=== PATIENT | female | born 1970 | race Caucasian/White ===

== ENCOUNTER 2019-11-28 16:35 | Outpatient (CLI) | payer OTHER, SELFPAY ==
--- NOTE | ~2019-11-28 | XR_ITS ---
EXAMINATION: XR knee RT min 4V EXAM DATE: 11/28/2019 17:37 INDICATION: No known recent injury provided at this time. Pain of the right knee. TECHNIQUE: Right knee lateral, frontal AP, frontal PA tunnel, sunrise projections. There is no prior study for comparison. FINDINGS: No evidence osteochondral defect or joint body in the right knee joint. There are no acut e fractures or dislocations identified. There is no subcutaneous gas. The soft tissue is unremarkab le. There are no radiopaque foreign bodies. No joint effusion. IMPRESSION: 1. Unremarkable XR knee RT min 4V exam. Reviewed, dictated and finalized at location A.
--- NOTE | ~2019-11-28 | XR_ITS ---
EXAMINATION: XR foot LT 2V EXAM DATE: 11/28/2019 17:37 INDICATION: No known recent injury provided at this time. Pain of the left foot. Pain with weightbear ing. TECHNIQUE: Frontal and lateral projections of the left foot. There is no prior study for comparison . FINDINGS: There are no bony erosions identified. No periosteal reaction or band of sclerosis to sug gest subacute stress fracture. There are no acute left foot fractures or dislocations identified. T here is no subcutaneous gas. The soft tissue is unremarkable. There are no radiopaque foreign bodi es. IMPRESSION: 1. XR foot LT 2V exam without acute osseous findings. Reviewed, dictated and finalized at location A.
--- NOTE | ~2019-11-28 | XR_ITS ---
EXAMINATION: XR hand LT 2V EXAM DATE: 11/28/2019 17:37 INDICATION: Bilateral hand pain. No known injury. Polyarthralgia. TECHNIQUE: Frontal and lateral projections of the left hand. There is no prior study for comparison . FINDINGS: There are no bony erosions identified. There are no acute left hand fractures or dislocati ons identified. There is no subcutaneous gas. The soft tissue is unremarkable. There are no radio paque foreign bodies. IMPRESSION: 1. Unremarkable left hand exam. Reviewed, dictated and finalized at location A.
--- NOTE | ~2019-11-28 | XR_ITS ---
EXAMINATION: XR sacroiliac joints min 3V EXAM DATE: 11/28/2019 17:38 INDICATION: Sacroiliac pain. TECHNIQUE: Frontal, bilateral oblique projections of the sacroiliac joints. There is no prior study for comparison. FINDINGS: There are no acute sacroiliac fractures or dislocations identified. There is no subcutaneo us gas. The soft tissue is unremarkable. There are no radiopaque foreign bodies. IMPRESSION: 1. Unremarkable sacroiliac exam. Reviewed, dictated and finalized at location A.
--- NOTE | ~2019-11-28 | XR_ITS ---
EXAMINATION: XR foot RT 2V EXAM DATE: 11/28/2019 17:37 INDICATION: Polyarthralgia. Right foot pain with weightbearing. TECHNIQUE: Frontal and lateral projections of the right foot. There is no prior study for compariso n. FINDINGS: There are no bony erosions identified. No periosteal reaction or band of sclerosis to sugg est subacute stress fracture. There are no acute right foot fractures or dislocations identified. There is no subcutaneous gas. The soft tissue is unremarkable. There are no radiopaque foreign nathanael dies. IMPRESSION: 1. XR foot RT 2V exam without acute osseous findings. Reviewed, dictated and finalized at location A.
--- NOTE | ~2019-11-28 | XR_ITS ---
EXAMINATION: XR hand RT 2V EXAM DATE: 11/28/2019 17:37 INDICATION: Bilateral hand pain. Arthralgia. TECHNIQUE: Frontal and lateral projections of the right hand. There is no prior study for compariso n. FINDINGS: There are no acute right hand fractures or dislocations identified. There is no subcutaneo us gas. The soft tissue is unremarkable. There are no radiopaque foreign bodies. There are no bon y erosions identified. IMPRESSION: 1. Unremarkable XR hand RT 2V exam. Reviewed, dictated and finalized at location A.
--- NOTE | ~2019-11-28 | XR_ITS ---
EXAMINATION: XR knee LT min 4V EXAM DATE: 11/28/2019 17:37 INDICATION: Polyarthralgia. Left pain. TECHNIQUE: Left knee lateral, frontal AP, frontal PA tunnel, sunrise projections. There is no prior study for comparison. FINDINGS: No evidence osteochondral defect or joint body in the left knee joint. There are no acute fractures or dislocations identified. There is no subcutaneous gas. No joint effusion. There are no radiopaque foreign bodies. IMPRESSION: 1. Unremarkable XR knee LT min 4V exam. Reviewed, dictated and finalized at location A.
== END 2019-11-28 16:36 | disposition home or self-care (01) ==
PROVIDERS: PCP Family Medicine; Visit Provider Physician Assistant
DX: M25.50 Pain in unspecified joint (principal)
CPT/HCPCS: 72202; 73120; 73564; 73620

== ENCOUNTER → 2019-12-05 14:37 | Outpatient (REF) | payer OTHER, SELFPAY | LOC: ANHLAB 14:37 | PROVIDERS: PCP Family Medicine; Visit Provider Nurse Practitioner | DX: D22.39 Melanocytic nevi of other parts of face (principal); D22.0 Melanocytic nevi of lip | CPT/HCPCS: 88305; 88342 ==

== ENCOUNTER → 2020-02-13 13:33 | Outpatient (REF) | payer OTHER, SELFPAY | LOC: ANHLAB 13:33 | PROVIDERS: PCP Family Medicine; Visit Provider Nurse Practitioner | DX: D22.72 Melanocytic nevi of left lower limb, including hip (principal); D23.72 Other benign neoplasm of skin of left lower limb, including hip | CPT/HCPCS: 88305 ==

== ENCOUNTER 2021-04-04 11:33 | Outpatient (CLI) | payer OTHER, SELFPAY | END 2021-04-04 11:34 | disposition home or self-care (01) | PROVIDERS: PCP Pediatrics; Visit Provider Obstetrics & Gynecology | DX: Z01.812 Encounter for preprocedural laboratory examination (principal); N92.0 Excessive and frequent menstruation with regular cycle | CPT/HCPCS: 36415; 86850; 86900; 86901 ==

== ENCOUNTER → 2021-04-06 00:03 | Outpatient (CLI) | payer OTHER, SELFPAY ==
[2021-04-06 16:46] LABS: SARS-CoV-2 RNA PCR Negative
== END ==
PROVIDERS: PCP Pediatrics; Visit Provider Obstetrics & Gynecology
DX: Z01.812 Encounter for preprocedural laboratory examination (principal); Z20.822 Contact with and (suspected) exposure to COVID-19
CPT/HCPCS: C9803; U0003; U0005

== ENCOUNTER 2021-04-10 00:28 | Day surgery (SDC) | payer OTHER, SELFPAY ==
[2021-04-03 09:46] VITALS: BMI 27.8
--- NOTE | 2021-04-03 10:13 | PC.NURSE ---
Report to the Outpatient Waiting Room, entrance under the green pavilion located off [facility], at time 10:00 on date 04/10/21. OR Time: 12:00. - You and your visitor will be asked a series of questions to screen for COVID 19 for your protection. - A mask is required within the hospital. One visitor will be allowed to accompany the patient into the hospital. Patients visitor will be instructed to remain with patient at all times or leave the building. We will allow the visitor to come back to the postoperative area when patient is ready. Preoperative COVID Testing Requirements: COVID TEST 04/06 AT 9:35 No COVID Test needed if: (proof is required; if not received patient will have Rapid Test prior to entry) - Patient has received COVID Vaccine at least 14 days prior to procedure date or - Patient has positive COVID test result within last 90 days of surgery date. COVID Test needed if above criteria is not met If not COVID vaccinated a COVID test must be conducted within 72 hours of surgery and patient is asked to isolate self from time of testing until procedure. You will go to the [facility] for your COVID testing. The [facility] site is located at the corner of [address] [facility]. You will only be called if COVID results are positive and your surgeon may reschedule your elective surgery date. Patients may have clear liquids (water, carbonated beverages, clear teas, apple juice) until 3 hours prior to surgery (9:00) with a maximum of 20 ounces. - No food from midnight until time of surgery Take the following medications with a SIP of water the morning of surgery: ATENOLOL, DESVENLAFAXINE Medications to discontinue per physician: DICLOFENAC Date to take last dose: PER DR. CAPMOS Please no make-up, nail turkmen, hairspray, perfume, deodorant, or body powder the day of surgery. No jewelry (including any body piercings) or valuables the day of surgery, leave them at home. Please take a shower or bath the night before, or the morning of, surgery with an antibacterial soap. Wear comfortable, loose fitting clothing. - Jewelry must be removed prior to entering the operating room. Rings and piercings that are not removed may be cut off. - The hospital will not accept responsibility for valuables. - Please leave all valuables, including medications, at home the day of surgery. If you are going home after surgery, a licensed driver's license examiner must drive you home. - NO public transportation without another adult. - We recommend that an adult stay with you for 24 hours following discharge. - We also recommend that you do not drive, make important decision, drink alcoholic beverages, or take any drugs that were not prescribed by your health care provider for at least 24 hours after your discharge time. Follow any additional instructions given to you from your surgeon. Telephone instructions given to JONH WASSERMAN and asked if any additional questions and then verbalized understanding. Patient advised to call surgeon office or pre surgery nurse liaison [phone] if any additional questions.
[2021-04-10] VITALS (11 sets, daily range): BP systolic 104–142; BP diastolic 56–86; PULSE 57–76; RESP 12–18; TEMP 36.6–36.8; O2SAT 95–100
--- NOTE | 2021-04-10 10:55 | P.PNAN_ITS ---
Anes - Initial Pre Proc Eval Procedure: Operation Date: 04/10/21 12:00 Proposed Procedures p Robotic Assisted Total Vaginal Hysterectomy with Bilateral Salpingectomy - Dejon Khanna MD Date/Time: 04/10/21 10:55 Surgeon: Dejon Khanna MD Pre Op Diagnosis: heavy bleeding, failed ablation, enlarged eagle/fibr Patient Data Age: 50 Gender: F Height: 1.69 m Weight: 79.38 kg Allergies Allergy/AdvReac Type Severity Reaction Status Date / Time No Known Allergies Allergy Verified 04/10/21 10:00 Home Medications Medication Instructions Recorded Confirmed Type atenolol 25 mg tablet 25 mg PO DAILY 10/25/19 04/10/21 History desvenlafaxine 100 mg 100 mg PO DAILY 10/25/19 04/10/21 History tablet,extended release 24 hr erenumab-aooe 70 mg/mL 70 mg SUB-Q MONTHLY 10/25/19 04/10/21 History subcutaneous auto-injector lisdexamfetamine 70 mg capsule 70 mg PO DAILY 10/25/19 04/10/21 History diclofenac sodium 100 mg PO DAILY 04/03/21 04/10/21 History Patient hx anesthesia problems: post op nausea/vomiting Family hx anesthesia problems: none Results Review: All pre-operative results and documents have been reviewed as part of the pre-operative evaluation. [facility] Past Medical History Medical History ADHD Depression Migraine Surgical History Surgical History History of cholecystectomy 06/2018 Family History Family History Father Diabetes mellitus Hypertension, Onset Age: 62 Family history of cardiovascular disease Cerebrovascular accident, Onset Age: 62 Acute myocardial infarction, Onset Age: 62 Sibling Diabetes mellitus Hypertension Patient's brother is in good health Family history of cardiovascular disease Family history of malignant neoplasm of breast in first degree relative Patient's sister is in good health Mother Family history of rheumatoid arthritis Family history of malignant neoplasm of breast in first degree relative Social History Social History Smoking status: Never smoker Alcohol intake: current Drinks per week: 3 Alcohol use details: sometimes Substance use: never Substance use type: does not use Living arrangements: alone Spiritual care concerns: No Anes - Eval Final PreProcedure Day of Procedure 04/10/21 10:55 Patient weight: overweight Heart: regular rate and rhythm Lungs: clear to auscultation Airway: Mallampati scale class II Last oral intake: >/= 8 hours ASA classification: II Emergent: no Anesthetic plan: proceed Anesthesia type and monitoring: general ETT and standard monitoring Results Review: All pre-operative results and documents have been reviewed as part of the pre-operative evaluation. Informed Consent: The patient's anesthetic plan and its attendant risks and benefits were discussed with the patient/family/POA. Questions were solicited and answers provided to the satisfaction of the patient/family/POA.
[2021-04-10] MEDS: LACTATED RINGERS 1,000 ML 30 ML IV CONT ×3 (10:56→14:16)
[2021-04-10] MEDS: ACETAMINOPHEN 500 MG TABLET 1000 MG PO (10:57)
[2021-04-10] MEDS: KETOROLAC 15 MG/ML VIAL (*BKC) IV PUSH (10:57)
--- NOTE | 2021-04-10 12:00 | PM.IMHP ---
H&P: HPI History of Present Illness Date/Time: 04/10/21 12:00 50 y/o with menometrorrhagia, desiring definitive management. She had an endometrial ablation which initially worked well, but she has started having heavy, unpredictable bleeding. Known to have a myomatous uterus. Chief Complaint: Heavy bleeding Review of Systems Review of Systems: All systems reviewed & are unremarkable except as noted in HPI and below PMFSH Past Medical History Medical History (Updated 04/10/21 @ 12:03 by Dejon Khanna MD) ADHD Depression Fibroid uterus Migraine Surgical History Surgical History History of cholecystectomy 06/2018 History of endometrial ablation History of tubal ligation Family History Family History Father Diabetes mellitus Hypertension, Onset Age: 62 Family history of cardiovascular disease Cerebrovascular accident, Onset Age: 62 Acute myocardial infarction, Onset Age: 62 Sibling Diabetes mellitus Hypertension Patient's brother is in good health Family history of cardiovascular disease Family history of malignant neoplasm of breast in first degree relative Patient's sister is in good health Mother Family history of rheumatoid arthritis Family history of malignant neoplasm of breast in first degree relative Social History Social History Smoking status: Never smoker Alcohol intake: current Drinks per week: 3 Alcohol use details: sometimes Substance use: never Substance use type: does not use Living arrangements: alone Spiritual care concerns: No Meds Home Medications and Allergies Home Medications Medication Instructions Recorded Confirmed Type atenolol 25 mg tablet 25 mg PO DAILY 10/25/19 04/10/21 History desvenlafaxine 100 mg 100 mg PO DAILY 10/25/19 04/10/21 History tablet,extended release 24 hr erenumab-aooe 70 mg/mL 70 mg SUB-Q MONTHLY 10/25/19 04/10/21 History subcutaneous auto-injector lisdexamfetamine 70 mg capsule 70 mg PO DAILY 10/25/19 04/10/21 History diclofenac sodium 100 mg PO DAILY 04/03/21 04/10/21 History Allergies Allergy/AdvReac Type Severity Reaction Status Date / Time No Known Allergies Allergy Verified 04/10/21 10:00 Vital Signs Vital Signs - 24 hr 04/10/21 10:59 Temperature 36.6 C Pulse Rate 70 Respiratory Rate 16 Blood Pressure 142/78 H Pulse Oximetry 100 Exam Const: Orientation/consciousness: patient oriented x3 Other: Well-developed, well-nourished female in no acute distress. Neck: Thyroid: thyroid normal Lymphatic: no lymphadenopathy noted (in neck, axilla or inguinal nodes) Resp: Effort & Inspection: normal respiratory effort Auscultation: clear to auscultation bilaterally Cardio: Rate: regular rate Rhythm: regular rhythm Heart sounds: S1 normal heart sound present and S2 normal heart sound present GI: Other: ABD: Soft, nontender, nondistended. No guarding or rebound tenderness. No hepatosplenomegaly. : General: Yes no CVA tenderness Other: External genitalia: normal female hair distribution, without lesion. Urethral meatus: no lesion, non prolapsed. Bladder: no mass, nontender Vagina: well-estrogenized, without lesion or discharge. No cystocele or rectocele. Cervix: no lesion or discharge. Uterus: small, anteverted, freely mobile, nontender Adnexa: no mass or tenderness. Anus/perineum: no lesions, nontender Back/Spine/Pelvis: Back: no CVA tenderness Skin: General skin exam: normal color and no rashes or lesions noted Neuro: General: patient oriented x3 Extrem: Other: Extremities: nontender with no edema Psych: Mental Status: mental status grossly normal Affect: normal affect Assessment and Plan Assessment and plan (1) Menometrorrhagia: Code(s): N92.1 - Excessive and frequent menstru
--- NOTE | 2021-04-10 12:05 | WPDHPUPDATE1 ---
History and Physical Update Update Date/Time: 04/10/21 12:05 History and Physical has been reviewed, including an updated exam of the patient. There are NO changes in the patient's condition. Risks, benefits, and alternatives have been discussed and questions answered. Patient agrees to proceed with procedure.
[2021-04-10] MEDS: ceFAZolin 2 GM/D5W 50 ML 2 GM/50 ML BAG IVPB (12:15)
--- NOTE | 2021-04-10 13:56 | W.PM.PROC2 ---
Procedure Note - Detailed Date of Procedure 04/10/21 Pre-op Diagnosis Menometrorrhagia Fibroid uterus Post-op Diagnosis same Procedure Performed Robotic assisted total vaginal hysterectomy with bilateral salpingectomies Surgeon Dejon Khanna MD Anesthesia general Findings Enlarged uterus. Evidence of prior tubal ligation. Normal-appearing adnexa. Description of Procedure The patient was taken to the operating room where general endotracheal anesthesia was administered. She was prepared and draped in the usual sterile fashion in the dorsal lithotomy position. The bladder was drained with Schwab catheter. The cervix was visualized and the anterior lip was grasped using a single-tooth tenaculum. The cervix was gently dilated using Hegar dilators. The RICKEY 2 uterine manipulator was then placed and the tenaculum was removed. Gloves were changed and attention was turned to the abdomen. A supraumbilical skin incision was made with the scalpel. The Veress needle was advanced and pneumoperitoneum was administered using carbon dioxide gas. The bladeless trocar was then advanced. Intraperitoneal placement was confirmed using the laparoscope. Lateral ports and an assistant auto center manager port were all placed using bladeless trocars under direct laparoscopic visualization. She was placed in Trendelenburg position and the patient cart was docked. I assumed the console. The ureters were visualized bilaterally. The round ligament on the right was divided. The Fallopian tube was dissected off the ovary. The uteroovarian ligament was divided. The broad ligament was divided, skeletonizing the uterine artery on the right. The bladder was reflected away. The left side was similarly dissected. Colpotomy was performed circumferentially. The specimen was removed and passed off to be sent to pathology. The vaginal cuff was reapproximated using 0 Vicryl in interrupted [id number] fashion. The pelvis was irrigated copiously using warmed normal saline. Rigorous hemostasis was assured. HemaDerm was applied to the vaginal cuff. The pedicles were inspected once again. The ports were then withdrawn and the gas was allowed to escape. The skin incisions were reapproximated using 4 0 Monocryl in interrupted subcuticular fashion. Dermaflex was applied externally. Sponge, lap, needle and instrument counts were correct. The patient was awakened and taken to the recovery room in stable condition. I was present and scrubbed through the entire procedure. Implants None Estimated Blood Loss 50 Drains Yes (schwab) Packing No Pathology yes (uterus, cervix, bilateral Fallopian tubes) Complications None Condition stable Disposition PACU
[2021-04-10] MEDS: fentaNYL CITRATE INJ (*CRX) 100 MCG/2 ML VIAL 25 MCG IV PUSH ×6 (14:34→15:25)
--- NOTE | 2021-04-10 15:54 | PC.NURSE ---
This patient, Stefani Huang, was received from PACU on 04/10/21 at 1554. Patient/family oriented to unit policies and routines
[2021-04-10] MEDS: DEXTROSE 5%/0.45% SOD CHL 1,000 ML 125 ML IV CONT (16:16)
[2021-04-10] MEDS: MORPHINE SULFATE (*CRX) 4 MG/ML INJ IV PUSH ×2 (16:17→20:45)
[2021-04-10] MEDS: KETOROLAC 30 MG/ML VIAL (*BKC) IV PUSH (16:18)
[2021-04-10] MEDS: DOCUSATE SODIUM 100 MG CAPSULE PO (18:04)
[2021-04-10] MEDS: SIMETHICONE 80 MG TAB.CHEW PO (18:04)
--- NOTE | 2021-04-10 20:15 | PC.NURSE ---
Dr. Khanna called in to check on patient, made aware that patient has not been out of bed yet because she wanted to sleep. No new orders recieved at this time.
[2021-04-10] MEDS: ENOXAPARIN 40 MG/0.4 ML SYRINGE SUB-Q (20:46)
[2021-04-11 00:15] VITALS: BP 125/76; PULSE 78; RESP 16; TEMP 36.4; O2SAT 100
[2021-04-11] MEDS: KETOROLAC 30 MG/ML VIAL (*BKC) IV PUSH (00:25)
[2021-04-11 04:30] VITALS: BP 115/69; PULSE 76; RESP 16; TEMP 36.6; O2SAT 98
[2021-04-11] MEDS: HYDROcodone/acetaminophen (*CRX) 10-325 MG TABLET 1 TAB PO (04:38)
--- NOTE | 2021-04-11 05:05 | PC.NURSE ---
Attempted to draw cbc x 2 with no success. Second RN attempted x1 without success. Phlebotomy, Yoly, notified and states she will come to obtain lab.
[2021-04-11 05:46] VITALS: PULSE 76; RESP 16; O2SAT 98
--- NOTE | 2021-04-11 08:16 | PM.GYNPNOP ---
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 Doing well. P: Home to f/u 2 weeks in office. (2) Fibroid uterus: Code(s): D25.9 - Leiomyoma of uterus, unspecified Status: Acute Postoperative Procedures: Procedures Operation Date: 04/10/21 12:00 Actual Procedure Side Surgeon p Robotic Assisted Total Vaginal Hysterectomy with Bilateral Salpingectomy Bilateral Dejon Khanna MD Time Spent With Patient Time with patient: less than 15 minutes [employer]ER- PN:Subj Post-Op Subjective Date/time seen: 04/11/21 08:16 Interval history: Pain OK. Several attempts to draw CBC have been unsuccessful. Tolerating diet. Voiding. Would like to go home. Exam Narrative: AVSS I/O OK ABD soft, nontender. Incisions c/d/i. EXT nontender [employer] SYSTEM[employer] ENGINEER - PN: Obj Data Vital Signs Vital Signs: Vital Signs - 24 hr 04/10/21 10:59 04/10/21 14:00 04/10/21 14:15 Temperature 36.6 C 36.8 C Pulse Rate 70 66 68 Respiratory Rate 16 16 14 Blood Pressure 142/78 H 104/79 118/74 Pulse Oximetry 100 100 100 04/10/21 14:30 04/10/21 14:45 04/10/21 15:00 Temperature Pulse Rate 67 58 L 63 Respiratory Rate 16 14 14 Blood Pressure 141/79 H 124/79 116/86 Pulse Oximetry 100 100 98 04/10/21 15:15 04/10/21 15:30 04/10/21 15:45 Temperature Pulse Rate 57 L 62 59 L Respiratory Rate 12 12 12 Blood Pressure 108/56 L 116/68 111/68 Pulse Oximetry 97 95 95 04/10/21 16:00 04/10/21 19:00 04/11/21 00:15 Temperature 36.8 C 36.8 C 36.4 C L Pulse Rate 76 68 78 Respiratory Rate 18 16 16 Blood Pressure 114/81 142/78 H 125/76 Pulse Oximetry 100 100 04/11/21 04:30 04/11/21 05:46 Temperature 36.6 C Pulse Rate 76 76 Respiratory Rate 16 16 Blood Pressure 115/69 Pulse Oximetry 98 98 Intake/Output Intake/Output: Intake & Output 04/08/21 04/09/21 04/10/21 04/11/21 23:59 23:59 23:59 23:59 Intake Total 1440 700 Output Total 1370 1300 Balance 70 -600 Meds/Results Medications: Active Medications Generic Name Dose Route Start Last Admin Trade Name Freq PRN Reason Stop Dose Admin Hydrocodone Bitart/Acetaminophen 1 tab 04/10/21 15:51 Hydrocodone/Acetaminophen (*Crx) 5-325 Mg Tablet PO Q3H PRN Pain Rated 5 or Less Hydrocodone Bitart/Acetaminophen 1 tab 04/10/21 15:51 04/11/21 04:38 Hydrocodone/Acetaminophen (*Crx) 10-325 Mg Tablet PO 1 tab Q3H PRN Administration Pain Rated 6 or Greater Atenolol 25 mg 04/11/21 09:00 Atenolol 25 Mg Tablet PO DAILY JERSON Desvenlafaxine Succinate 100 mg 04/11/21 09:00 Desvenlafaxine Succinate 50 Mg Tab.Er.24h PO 05/11/21 08:59 DAILY JERSON Docusate Sodium 100 mg 04/10/21 17:00 04/10/21 18:04 Docusate Sodium 100 Mg Capsule PO 100 mg BID JERSON Administration Enoxaparin Sodium 40 mg 04/10/21 21:00 04/10/21 20:46 Enoxaparin 40 Mg/0.4 Ml Syringe SUB-Q 40 mg HS JERSON Administration Dextrose/Sodium Chloride 1,000 mls @ 125 mls/hr 04/10/21 15:51 04/11/21 02:55 Dextrose 5% Sodium Chloride 0.45% IV CONT Not Given .Q8H JERSON Ibuprofen 600 mg 04/10/21 15:51 Ibuprofen 600 Mg Tablet PO Q6H PRN Cramping Ketorolac Tromethamine 30 mg 04/10/21 16:06 04/11/21 00:25 Ketorolac 30 Mg/Ml Vial (*Bkc) IV PUSH 30 mg Q6H PRN Administration Pain Rated 4-6 Metoclopramide HCl 10 mg 04/10/21 15:51 Metoclopramide Hcl Inj 10 Mg/2 Ml Vial IV PUSH Q6H PRN Nausea Miscellaneous Information 0 each 04/10/21 00:01 04/11/21 02:57 Aimovig Autoinjector And Vyvanse Are Nonformulary- Can Patient Bring From Home? XX 05/10/21 00:00 Not Given CLARIFY JERSON Morphine Sulfate 4 mg 04/10/21 15:51 04/10/21 20:45 Morphine Sulfate (*Crx) 4 Mg/Ml Inj IV PUSH 4 mg Q4H PRN Administration Pain Rated 7-10 Naloxon
--- NOTE | 2021-04-11 08:18 | PM.DS ---
DS: Admitting Diagnosis Discharge Date 04/11/21 Admitting Diagnosis Menometrorrhagia, refractory to conservative management. Fibroid uterus DS: Discharge Diagnosis Discharge Diagnosis (1) Fibroid uterus: Code(s): D25.9 - Leiomyoma of uterus, unspecified Status: Acute (2) Menometrorrhagia: Code(s): N92.1 - Excessive and frequent menstruation with irregular cycle Status: Acute DS: Summary Hospital Course Hospital Course: Admitted to the hospital on the date of scheduled surgery. Please see op note. Did well and was able to go home on POD#1. DS: Data Data Completed and Pending Pending studies at discharge: Pending at discharge 04/10/21 13:10 Surgical [PTH] Routine Discharge Plan Discharge Patient Disposition: Home, Self-Care Discharge Instructions: Call or return if temperature above 100.4? F, increased abdominal pain, increased vaginal bleeding or any new problems. Pelvic rest for six weeks. Patient Instructions: Hysterectomy (DC), Pain Management After Surgery (DC) Stand Alone Forms: General Discharge Instructions Follow-up/Referrals: Dejon Khanna MD [Physician] - 2 Weeks Discharge Medications: New hydrocodone-acetaminophen 5-325 mg tablet 1 - 2 tablet PO Q6H Qty: 30 RF: 0 Continued atenolol 25 mg tablet 25 mg PO DAILY RF: 0 desvenlafaxine 100 mg tablet extended release 24 hr 100 mg PO DAILY RF: 0 Vyvanse 70 mg capsule 70 mg PO DAILY RF: 0 Aimovig Autoinjector 70 mg/mL auto-injector 70 mg SUB-Q MONTHLY RF: 0 diclofenac sodium 100 mg tablet extended release 24 hr 100 mg PO DAILY RF: 0
[2021-04-11 08:25] VITALS: BP 124/65; PULSE 83; RESP 16; TEMP 36.2; O2SAT 99
--- NOTE | 2021-04-11 08:30 | PC.NURSE ---
PT introductions made and plan of care discussed per post op c section, pain management, daily care activities and pending discharge to home. PT received instructions per one to one discussion and demonstrations. PT sole recipient of such instructions and no barriers to learning identified and pt verbalized understanding of such care.
[2021-04-11 09:22] VITALS: PULSE 66
[2021-04-11] MEDS: atenoloL 25 MG TABLET PO (09:22)
[2021-04-11] MEDS: DESVENLAFAXINE SUCCINATE 50 MG TAB.ER.24H 100 MG PO (09:24)
[2021-04-11] MEDS: DOCUSATE SODIUM 100 MG CAPSULE PO (09:24)
[2021-04-11] MEDS: IBUPROFEN 600 MG TABLET PO (09:24)
[2021-04-11] MEDS: HYDROcodone/acetaminophen (*CRX) 5-325 MG TABLET 1 TAB PO ×2 (09:25→10:29)
[2021-04-11 09:26] VITALS: PULSE 66; RESP 16; O2SAT 98
[2021-04-11] MEDS: SIMETHICONE 80 MG TAB.CHEW PO (09:26)
--- NOTE | 2021-04-11 11:53 | WPDANESPN ---
Anes - Prog Note Post-Op Date/Time: 04/11/21 11:53 Cardiovascular status: normal Respiratory status: normal Airway patency: baseline Mental status: baseline Post-Op hydration status: normal Vital Signs: Last Vital Signs Temp 36.2 C L 04/11/21 08:25 Pulse 66 04/11/21 09:26 Resp 16 04/11/21 09:26 BP 124/65 04/11/21 08:25 Pulse Ox 98 04/11/21 09:26 Pain Score (VAS): 3 I/O: Intake & Output 04/10/21 04/11/21 04/11/21 23:59 07:59 15:59 Intake Total 1040 700 Output Total 1310 1300 100 Balance -270 -600 -100 Post-procedural complaints: none Patient Feedback: Patient satisfied with anesthetic care.
--- NOTE | 2021-04-11 12:00 | PC.NURSE ---
Pt received discharge instructions per protocol and verbalized understanding of such care. Abdominal binder applied to abdomen
--- NOTE | 2021-04-11 12:25 | PC.NURSE ---
PT discharged to home via wheelchair unaccompanied and taken to waiting car. Follow up appts confirmed
== END 2021-04-11 12:25 | disposition home or self-care (01) ==
LOC: ANHSURGERY 14:11 → ANHOB2 04-11 09:00
PROVIDERS: PCP Pediatrics; Visit Provider Obstetrics & Gynecology
PROC: (CPT 58552; principal; 2021-04-10 12:00)
DX: N92.1 Excessive and frequent menstruation with irregular cycle (principal); N80.0 Endometriosis of uterus; D25.9 Leiomyoma of uterus, unspecified; F90.9 Attention-deficit hyperactivity disorder, unspecified type; F32.9 Major depressive disorder, single episode, unspecified
CPT/HCPCS: 58552; S2900; 88307; 99199; A9270; J0690; J1100; J1170; J1200; J1650; J1885; J2250; J2270; J2405; J2704; J2710; J3010; J7030; J7120

== ENCOUNTER 2021-08-17 10:05 | Emergency (ER) | payer SELFPAY ==
[2021-08-17 10:25] VITALS: BP 139/84; PULSE 77; RESP 18; TEMP 36.6; O2SAT 100
--- NOTE | 2021-08-17 10:54 | ED.GENADULT ---
HPI - General Adult General Chief complaint: Upper Respiratory Infection Stated complaint: Congestion,Cough,Bilateral Eye Irritation History of Present Illness HPI narrative: Patient not present upon entry into exam room Related Data Home Medications Medication Instructions Recorded Confirmed atenolol 25 mg tablet 25 mg PO DAILY 10/25/19 08/17/21 desvenlafaxine 100 mg 100 mg PO DAILY 10/25/19 08/17/21 tablet,extended release 24 hr erenumab-aooe 70 mg/mL 70 mg subcut MONTHLY 10/25/19 08/17/21 subcutaneous auto-injector (Aimovig Autoinjector) lisdexamfetamine 70 mg capsule 70 mg PO DAILY 10/25/19 08/17/21 (Vyvanse) diclofenac sodium 100 mg 100 mg PO DAILY 04/03/21 08/17/21 tablet,extended release 24 hr Allergies Allergy/AdvReac Type Severity Reaction Status Date / Time No Known Allergies Allergy Verified 08/17/21 10:21 COUNTS INCLUDE 234 BEDS AT THE [facility] Past Medical History Medical History (Updated 04/11/21 @ 08:17 by Dejon Khanna MD) ADHD Depression Fibroid uterus Migraine Surgical History Surgical History History of cholecystectomy 06/2018 History of endometrial ablation History of tubal ligation Family History Family History Father Diabetes mellitus Hypertension, Onset Age: 62 Family history of cardiovascular disease Cerebrovascular accident, Onset Age: 62 Acute myocardial infarction, Onset Age: 62 Sibling Diabetes mellitus Hypertension Patient's brother is in good health Family history of cardiovascular disease Family history of malignant neoplasm of breast in first degree relative Patient's sister is in good health Mother Family history of rheumatoid arthritis Family history of malignant neoplasm of breast in first degree relative Social History Social History Smoking status: Never smoker Alcohol intake: current Drinks per week: 3 Alcohol use details: sometimes Substance use: never Substance use type: does not use Spiritual care concerns: No Course Course Level of Care: Express Care Visit Vital Signs Vital signs: Vital Signs Temperature 97.9 F 08/17/21 10:25 Pulse Rate 77 08/17/21 10:25 Respiratory Rate 18 08/17/21 10:25 Blood Pressure 139/84 08/17/21 10:25 Pulse Oximetry 100 08/17/21 10:25 Oxygen Delivery Room Air 08/17/21 10:25 Temperature 97.9 F 08/17/21 10:25 Pulse Rate 77 08/17/21 10:25 Respiratory Rate 18 08/17/21 10:25 Blood Pressure 139/84 08/17/21 10:25 Pulse Oximetry 100 08/17/21 10:25 Oxygen Delivery Room Air 08/17/21 10:25 Medical Decision Making Vital Signs Vital Signs: Vital Signs Temperature 97.9 F 08/17/21 10:25 Pulse Rate 77 08/17/21 10:25 Respiratory Rate 18 08/17/21 10:25 Blood Pressure 139/84 08/17/21 10:25 Pulse Oximetry 100 08/17/21 10:25 Oxygen Delivery Room Air 08/17/21 10:25 Temperature 97.9 F 08/17/21 10:25 Pulse Rate 77 08/17/21 10:25 Respiratory Rate 18 08/17/21 10:25 Blood Pressure 139/84 08/17/21 10:25 Pulse Oximetry 100 08/17/21 10:25 Oxygen Delivery Room Air 08/17/21 10:25 Discharge Plan Discharge Patient Disposition: Left Without Being Sn Triaged Additional Instructions: Eloped Prescriptions: No Action atenolol 25 mg tablet 25 mg PO DAILY desvenlafaxine 100 mg tablet extended release 24 hr 100 mg PO DAILY Vyvanse 70 mg capsule 70 mg PO DAILY Aimovig Autoinjector 70 mg/mL auto-injector 70 mg SUB-Q MONTHLY Label Comments: PT TAKES ON THE 12TH diclofenac sodium 100 mg tablet extended release 24 hr 100 mg PO DAILY Follow-up/Referrals: Faizan Denson MD [Primary Care Provider] - Time of Disposition: 10:57
== END 2021-08-17 10:45 | disposition left against medical advice (07) ==
PROVIDERS: Emergency Provider Nurse Practitioner Family; PCP Pediatrics
DX: Z53.21 Procedure and treatment not carried out due to patient leaving prior to being seen by health care provider (principal)
CPT/HCPCS: 99199

== ENCOUNTER 2021-11-02 10:54 | Outpatient (CLI) | payer OTHER, SELFPAY ==
[2021-11-02 11:14] LABS: Hematocrit 40.8 % (37.0-47.0); Hemoglobin 13.5 g/dL (12.0-15.0)
[2021-11-02 11:24] LABS: Blood Urea Nitrogen 16 mg/dL (7-17); Estimated Glomerular Filt Rate > 60
== END 2021-11-02 10:55 | disposition home or self-care (01) ==
LOC: ANHLAB 10:58
PROVIDERS: PCP Pediatrics; Visit Provider Hospitalist
DX: R07.9 Chest pain, unspecified (principal)
CPT/HCPCS: 36415; 82565; 84520; 85014; 85018

== ENCOUNTER 2024-11-09 07:24 | Outpatient (CLI) | payer OTHER, SELFPAY ==
--- NOTE | 2024-11-09 | ECHO_ITS ---
Patient Info Name: Stefani Huang Age: 54 years : 1970 Gender: Female Ht: 65 in Wt: 180 lbs BSA: 1.96 m2 HR: 73 bpm BP: 154 / 101 mmHg Technical Quality: Good Exam Date: 11/09/2024 8:21 AM Patient Status: O Admit Date: 11/09/2024 Exam Type: CA echo doppler color flow Complete two-dimensional, color flow and Doppler transthoracic echocardiogram is performed. Hoop Maker Helper Machine: Juliana Cummings Attending Provider: Faizan Denson Summary 1. Complete two-dimensional, color flow and Doppler transthoracic echocardiogram is performed. 2. Left ventricular chamber dimension is normal. 3. Left ventricular systolic function is normal, estimated at 60-65. 4. The left ventricular diastolic function is grade I diastolic dysfunction. 5. E/e' 8 is minimally elevated. 6. There is trace mitral valve regurgitation. 7. There is mild tricuspid valve regurgitation. 8. Mild pulmonary hypertension, estimated pulmonary arterial systolic pressure is 41 mmHg. Left Ventricle E/e' 8 is minimally elevated. Left ventricular chamber dimension is normal. Left ventricular systolic function is normal, estimated at 60-65. The left ventricular diastolic function is grade I diastolic dysfunction. Right Ventricle Right ventricular chamber dimension is normal. Right ventricular systolic function is normal and with normal TAPSE 1.9 cm. Left Atria Left atrial chamber dimension is normal. Right Atria Right atrial chamber dimension is normal. Aortic Valve The aortic valve is trileaflet. There is no aortic valve stenosis. There is no aortic valve regurgitation. Pulmonic Valve There is no pulmonic regurgitation. Mitral Valve There is no mitral valve stenosis. There is trace mitral valve regurgitation. Tricuspid Valve There is mild tricuspid valve regurgitation. Mild pulmonary hypertension, estimated pulmonary arterial systolic pressure is 41 mmHg. Pericardium/Pleural There is no pericardial effusion. Inferior Vena Cava Normal inferior vena cava with >50% collapse upon inspiration consistent with normal right atrial pressure, 5 mmHg. Aorta The aortic root size at the sinus of Valsalva is normal. Left Ventricular Outflow Tract Name Value Normal LVOT 2D LVOT Diameter 1.8 cm LVOT Doppler LVOT Peak Velocity 136 cm/s LVOT Peak Gradient 7 mmHg LVOT Mean Gradient 3 mmHg LVOT VTI 30 cm LVOT Stroke Volume 75 ml LVOT CO 5.5 l/min LVOT CI 2.8 l/min/m2 Pulmonic Valve Name Value Normal RVOT Doppler RVOT Peak Velocity 72 cm/s RVOT Peak Gradient 2 mmHg PV Doppler PV Peak Velocity 95 cm/s PV Peak Gradient 4 mmHg Mitral Valve Name Value Normal MV Diastolic Function MV E Peak Velocity 84 cm/s MV A Peak Velocity 95 cm/s MV E/A 0.9 MV Decel Time (PW) 233 ms MV Annular TDI MV E/e' (Septal) 10.1 MV E/e' (Lateral) 7.9 MV E/e' (Average) 9.0 Tricuspid Valve Name Value Normal TV Regurgitation Doppler TR Peak Velocity 301 cm/s TR Peak Gradient 36 mmHg Estimated PAP/RSVP RA Pressure 5 mmHg <=5 PA Systolic Pressure 41 mmHg <36 RV Systolic Pressure 41 mmHg <36 Aortic Valve Name Value Normal AV Doppler AV Peak Velocity 156 cm/s AV Peak Gradient 10 mmHg AV Area (Cont Eq Randall) 2.2 cm2 AV DI (Randall) 0.87 AV Regurgitation 2D LVOT Area 2.5 cm2 Ventricles Name Value Normal LV Dimensions 2D/MM IVS Diastolic Thickness (2D) 0.7 cm 0.6-1.0 LVID Diastole (2D) 3.7 cm 3.8-5.2 LVIW Diastolic Thickness (2D) 0.9 cm 0.6-0.9 LVID Systole (2D) 2.3 cm 2.2-3.5 LVOT Diameter 1.8 cm LV Mass (2D Cubed) 84.30 g 67.00-162.00 LV Mass Index (2D Cubed) 43 g/m2 43-95 Relative Wall Thickness (2D) 0.51 <=0.42 LV Fractional Shortening/Ejection Fraction 2D/MM LV Fractional Shortening (2D) 37 % 27-45 LV EF (2D Teichholz) 67 % LV Diastolic Volume (4C MOD) 84 ml LV EF (4C MOD) 61 % LV Diastolic Volume (2C MOD) 94 ml LV EF (2C MOD) 66 % LV Diastolic Volume (BP MOD) 91 ml 46-106 LV Diastolic Volume Index (BP MOD) 46 ml/m2 29-61 LV Systolic Volume (BP MOD) 33 ml 14-42 LV Systolic Volume Index (BP MOD) 17 ml/m2 8-24 LV EF (BP MOD) 63 % 54-74 LV Diastolic Length (4C) 7.6 cm LV Systolic Length (4C) 6.6 cm LV Stroke Volume (4C MOD) 51 ml Atria Name Value Normal LA Dimensions LA Volume (4C A-L) 34 ml LA Volume (BP A-L) 25 ml RA Dimensions RA Area (4C) 12.8 cm2 <=18.0 Report Signatures
--- OUTSIDE RECORDS SUMMARY | 2024-11-09 07:38 | XMS_ITS | Encounter Summary ---
Author Organization [facility] Address [address] [place] [id number] Care Team Providers Care Centerless Grinding Machine Adjuster Name Role Phone Faizan Denson MD Primary Care Provider [phone] Encounter Details Date Type Department Care Team (Late st Contact Info) Description 11/04/2021 Applits Message Enc [facility] [address] [address] Prepared [place], [facility] Provider Lab results Social History Tobacco Use Types Packs/Day Years Used Date Smoking Tobacco: Never Smokeless Tobacco: Never Alcohol Use Standard Drinks/Week Comments Yes 0 (1 standard drink = 0.6 oz pur e alcohol) rare Comments Unknown Sex and Gender Information Value Date Recorded Sex Assigned at Not on file Legal Sex Female 5:46 PM CDT Gender Identity Not on file Sexual Orientation Not on file COVID-19 Exposure Response Date Recorded In the last 10 days, have yo u been in contact with someone who was confirmed or suspected to have Coronavirus/COVID-19? No / Unsure 10/30/2021 7:03 AM CDT documented as of this encounter Plan of Treatment Not on file documented as of this encounter Visit Diagnoses Not on filedocumented in this encounter Care Teams Centerless Grinding Machine Adjuster Relationship Specialty Start Date End Date Faizan Denson MD [address] [place] [address] PCP - General PEDIATRICS 10/25/21 documented as of this encounter
--- OUTSIDE RECORDS SUMMARY | 2024-11-09 07:38 | XMS_ITS | Encounter Summary ---
Author Organization [facility] Address [facility]ly [facility] [place] [address] Care Team Providers Care Shell Machine Operator Name Role Phone Faizan Denson MD Primary Care Provider [phone] Encounter Details Date Type Department Care Team (Late st Contact Info) Description 12/03/2021 Abstract [facility] [place], [address] [address] Cyril Adan MA Social History Tobacco Use Types Packs/Day Years [...] was confirmed or suspected to have Coronavirus/COVID-19? Unable to assess 11/28/2021 1:48 PM CDT documented as of this encounter Plan of Treatment Not on file documented as of this encounter Procedures Procedure Name Priority Date/Time Associated Diagnosis Comments COMPREHENSIVE METABOLIC PANEL Routine 11/02/2021 CBC, MANUAL DIFF Routine 11/02/2021 documented in this encounter Results * COMPREHENSIVE METABOLIC PANEL (11/02/2021) BUN 16 CREATININE S/P/B 0.90 0.5 - 1.0 GFR ESTIMATE >60 us Default History Genericprovider LABORATORY Final Result * CBC, MANUAL DIFF (11/02/2021) HGB 13.5 HCT 40.8 us Default History Genericprovider LABORATORY Final Result documented in this encounter Visit Diagnoses Not on filedocumented in this encounter Care Teams Shell Machine Operator Relationship Specialty Start Date End Date Faizan Denson MD [address] [place] [id number] PCP - General PEDIATRICS 10/25/21 documented as of this encounter
--- OUTSIDE RECORDS SUMMARY | 2024-11-09 07:38 | XMS_ITS | Encounter Summary ---
Author Organization [facility] Address [address] [place] [address] Care Team Providers Care Wireworker Supervisor Name Role Phone Faizan Denson MD Primary Care Provider [phone] Encounter Details Date Type Department Care Team (Late st Contact Info) Description 11/11/2022 Naow Message Enc [facility] [place] [address] [place], [facility] Provider Payment Plan Social History Tobacco Use Types Packs/Day Years Used Date Smoking Tobacco: Never Smokeless Tobacco: Never Alcohol Use Standard Drinks/Week Comments Yes 0 (1 standard drink = 0.6 oz pur e alcohol) rare Comments No Sex and Gender Information Value Date Recorded Sex Assigned at Not on file Legal Sex Female 5:46 PM CDT Gender Identity Not on file Sexual Orientation Not on file documented as of this encounter Plan of Treatment Not on file documented as of this encounter Visit Diagnoses Not on filedocumented in this encounter Care Teams Wireworker Supervisor Relationship Specialty Start Date End Date Faizan Denson MD [address] [place] [address] PCP - General PEDIATRICS 10/25/21 documented as of this encounter
--- OUTSIDE RECORDS SUMMARY | 2024-11-09 07:38 | XMS_ITS | Clinical Summary ---
Author Organization [facility] Address [address] [place] [address] Care Team Providers Care Press Tool Maker Name Role Phone Faizan Denson MD Primary Care Provider [phone] Allergies Active Allergy Reactions Criticality Noted Date Comments Erythromycin Unknown 09/05/2010 Medications atenolol (TENORMIN) 25 MG tablet Take 1 tablet (25 mg total) by mouth 2 (two) times daily. 2 Active desvenlafaxine ER 100 MG TABLET SR 24 HR 24 hr tablet TAKE 1 TABLET ONCE A DAY ALONG WITH ONE 25MG TABLET 2 Active desvenlafaxine ER (PRISTIQ) 25 MG 24 hr tablet Take 1 tablet (25 mg total) by mouth daily. 2 Active diclofenac XR (VOLTAREN XR) 100 MG 24 hr tablet Take 1 tablet (100 mg total) by mouth daily. 2 Active VYVANSE 70 MG capsule Take 1 capsule (70 mg total) by mouth every morning. 2 Active nitroglycerin (NITROSTAT) 0.[address] ONE TABLET UNDER THE TONGUE EVERY 5 MINUTES FOR CHEST PAIN. DO NOT EXCEED 3 DOSES IN 15 MINUTES 2 Active SUMAtriptan (IMITREX) 100 MG tablet TAKE 1 TABLET BY MOUTH DIRECTED NEEDED FOR MIGRAINE HEADACHE 2 Active UBRELVY 100 MG tablet PRN 2 Active aspirin EC (ECOTRIN) 81 MG tablet Take 1 tablet (81 mg total) by mouth daily. Active BLOOD PRESSURE CUFF, DME,Indications: Hypertension 1 Device by Does not apply route daily. 1 Device 2 Active atorvastatin (LIPITOR) 40 MG tablet Take 1 tablet (40 mg total) by mouth daily. 3 Active pantoprazole EC (PROTONIX) 40 MG tablet Take 1 tablet (40 mg total) by mouth daily. 90 tablet 2 3 Active famotidine (PEPCID) 40 MG tablet Take 1 tablet (40 mg total) by mouth daily. 3 Active esomeprazole (NEXIUM) 20 MG capsule Take 1 capsule (20 mg total) by mouth every morning before breakfast. Active isosorbide mononitrate ER (IMDUR) 30 MG 24 hr tablet TAKE 1 TABLET BY MOUTH EVERY DAY 7 tablet 5 Active Active Problems Problem Noted Date Diagnosed Date Hypertension, essential, benign 10/28/2021 Dyslipidemia 10/28/2021 Immunizations Immunization Administration Dates Next Due Influenza (Generic) 11/12/2017 Influenza Adult (Generic) 01/09/2019,11/08/2016 MMR (MMRII) 05/16/1994 Td (TDVAX) 07/19/1987 Tdap (Generic) 02/02/2012 Family History Medical History Relation Comments cardiac stent Brother Heart Attack Father Stroke Father Heart Attack Maternal Grandmother Relation Status Comments Brother Alive Father Maternal Grandfather Maternal Grandmother Mother Alive Paternal Grandfather Paternal Grandmother Sister 1 Alive Sister 2 Social History Tobacco Use Types Packs/Day Years Used Date Smoking Tobacco: Never Smokeless Tobacco: Never Alcohol Use Standard Drinks/Week Comments Yes 0 (1 standard drink = 0.6 oz pur e alcohol) rare Comments No Sex and Gender Information Value Date Recorded Sex Assigned at Not on file Legal Sex Female 5:46 PM CDT Gender Identity Not on file Sexual Orientation Not on file Last Filed Vital Signs Vital Sign Reading Time Taken Comments Blood Pressure 130/84 11/27/2022 12:11 PM CDT Pulse 63 11/27/2022 12:11 PM CDT Temperature 36.4 C (97.5 F) 10/30/2021 8:33 AM CDT Respiratory Rate 17 10/30/2021 12:45 PM CDT Oxygen Saturation 96% 10/30/2021 12:45 PM CDT Inhaled Oxygen Concentration - - Weight 87.5 kg (193 lb) 11/27/2022 12:11 PM CDT Height 165.1 cm (5' 5) 11/27/2022 12:11 PM CDT Body Mass Index 32.12 11/27/2022 12:11 PM CDT Plan of Treatment Health Maintenance Due Date Last Done Comments Cervical Cancer Screening Pa p Smear (Age 30 to 64) Every 3 Years 1971 Colorectal Cancer Screening Colonoscopy (10 Years) 1971 Annual Physical 05/26/1974 Hepatitis C 05/26/1989 Hepatitis B Vaccines (1 of 3 - 19+ 3-dose series) 05/26/1990 Cervical Cancer Screening Pa p with HPV Testing (Age 30 to 64) Every 5 Years 05/26/2001 Cervical Cancer Screening wi th HPV 05/26/2001 Mammogram Screening 2011 Pneumococcal Vaccine: 50+ Years (1 of 1 - PCV) 05/26/2021 Zoster Vaccines (1 of 2) 05/26/2021 DTaP, Tdap and Td Vaccines ( 3 - Td or Tdap) 02/01/2022 02/02/2012, 07/19/1987 COVID-19 Vaccine (2023-2 5 season) 2024 Meningococcal B Vaccine Aged Out No l onger eligible based on patient's age to complete this topic Meningococcal Vaccine Aged Out No zara brit eligible based on patient's age to complete this topic RSV Immunizations Under 20 Months Aged Out No longer eligible b ased on patient's age to complete this topic Insurance Advance Directives * Full Code (Latest Code Status on File) Date Activated Date Inactivated Comments 10/30/2021 9:49 AM 10/30/2021 2:57 PM Care Teams Press Tool Maker Relationship Specialty Start Date End Date Faizan Denson MD [address] [place] [address] PCP - General PEDIATRICS 10/25/21
--- OUTSIDE RECORDS SUMMARY | 2024-11-09 07:38 | XMS_ITS | Clinical Summary ---
Author Organization [facility] [address] [facility] Address [address] [place] [address] Care Team Providers Care Lighting Fixture Installer Name Role Phone Faizan Denson MD Primary Care Provider [phone] John Dunlap MD Unavailable [phone] Junior David MD Unavailable Allergies No known active allergies Medications diclofenac XR (VOTAREN XR) 100 mg 24 hr tablet TAKE 1 TABLET BY MOUTH EVERY DAY WITH A MEAL Active desvenlafaxine ER (PRISTIQ) 100 mg 24 hr tablet Take by mouth daily 07/26/2021 Active atenoloL (TENORMIN) 25 mg tablet Take 1 tablet (25 mg total) by mouth daily 09/24/2021 Active atorvastatin (LIPITOR) 40 mg tablet Take 0.5 tablets (20 mg total) by mouth daily 05/12/2022 Active lisdexamfetamin e (VYVANSE) 70 mg capsule Take 1 capsule (70 mg total) by mouth every morning Active folic acid (FOLVITE) 1 mg tablet Take 1 tablet (1,000 mcg total) by mouth daily 90 tablet 3 06/16/2024 Active methotrexate 2.5 mg tabletIndicatio ns:autoimmune disease TAKE 5 TABLETS (12.5 MG TOTAL) BY MOUTH EVERY 7 DAYS. 60 tablet 2 09/06/2024 Active Active Problems Problem Noted Date Diagnosed Date Transaminitis 10/26/2024 Assessment & Plan (10/26/2024 12:16 PM CDT): Resolved on recent labs, will continue to monitor. Encounter for medication monitoring 06/16/2024 Assessment & Plan (10/26/2024 10:01 AM CDT): Continue routine lab monitoring Hepatitis B/C negative 2022 Assessment & Plan (06/16/2024 3:06 PM CDT): Continue routine lab monitoring Hepatitis B/C negative 2022 Hyperlipidemia 06/16/2024 Assessment & Plan (06/16/2024 3:07 PM CDT): Pt had order from PCP to repeat lipid panel, will draw with our labs today and forward all results. Rheumatoid arthritis of [facility] sites with negative rheumatoid factor 11/18/2019 Overview (06/16/2024): Labs Avise reveals CLINTON 1:160 homogenous. No other autoantibodies. Hepatitis negative Xrays XR hands, feet, SI joints, and knees negative Ultrasound US right hand/wrist (11/25/19): Mild effusions and power doppler on examination which will have to be correlated clinically. Moderate synovial thickening in the wrist. Mild synovial thickening in the 2nd and 3rd PIP joint.Grade 1 effusion in the volar 4th MCP and 3rd PIP joints. Grade 1 power doppler in the wrist and radial/scaphoid joint. 12/10/2022 CLINTON 1:160 with negative RF, RELIEF DOCKING MASTER, Sm, Scl70, SSA, SSB, chromatin, Jo1, centromere, ds dna, hepatitis B/C XR R hand - erosions of the 2nd metacarpal head, 2nd MCP narrowing and mild capsular distension. XR L hand - moderate basal thumb joint OA XR L foot - mild 1st MTP OA XR R foot - neg XR R shoulder - mild AC OA Assessment & Plan (10/26/2024 12:16 PM CDT): Cdai in remission without inflammatory sounding pain. Suggested that she could consider the use of topicals for her hand pain that occurs 2/2 typing, discussed Voltaren gel. Otherwise appears RA stable, will continue methotrexate 12.5 mg weekly, folic acid 1 mg daily, and diclofenac. Recent labs reviewed. Plan for follow up in 3-4 months or sooner as needed. 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 She most recently has followed with Dr. David in [place] but is transferring care due to geographic convenience to her work. She remains on methotrexate 12.5 mg weekly and notes good control of her RA. Her exam today is c/w her report with cdai in remission. Overall her RA does appear stable at present, will plan to continue methotrexate 12.5 mg once weekly. She reports that she has not been taking folic acid, do recommend starting this 1 mg daily. Check routine labs today as below. Plan for follow up in 3-4 months or sooner as needed. Assessment & Plan (12/02/2019 12:25 PM CDT): 49yoF presents for evaluation due to joint pain and +CLINTON. She has pain in B hands, elbows, knees, feet, and low back with transient AM stiffness. Aleve prn provides moderate benefit. Additionally reports fatigue, Raynaud's, and dry eyes. Family history of RA in her mother. By exam she has several tender joints without obvious synovitis. Our workup showed an CLINTON 1:160 but no other autoantibodies, negative xrays, and R hand/wrist ultrasound without significant inflammatory changes. At this time, there is not evidence to suggest any rheumatologic diagnosis. Will plan to monitor patient for new/progressing symptoms, visit in 6 months or sooner as needed. Assessment & Plan (11/18/2019 3:22 PM CDT): 49yoF presents for evaluation due to joint pain and +CLINTON. She has pain in B hands, elbows, knees, feet, and low back with transient AM stiffness. Aleve prn provides moderate benefit. Additionally reports fatigue, Raynaud's, and dry eyes. Family history of RA in her mother. By exam she has several tender joints without obvious synovitis. At this time have a lower suspicion of any inflammatory arthritis, favor mechanical etiology. To fully evaluate will check appropriate serologies, xrays, and ultrasound with plan for follow up in 2 weeks to review results. Non-toxic multinodular goiter 07/02/2013 Overview (05/21/2016): NONTOX MULTINODUL GOITER Encounters Date Type Department Care Team Description 10/27/2024 Orders Only [facility] [address] [place] [phone] Sharda Lawler PA 10/26/2024 11:30 AM CDT Office Visit [facility] [address] [place] [phone] Sharda Lawler PA Rheumatoid arthritis of multiple sites with negative rheumatoid factor (HCC) (Primary Dx); Encounter for medication monitoring; Transaminitis from Last 3 Months Medical History Medical History Date Comments Disorder of thyroid Thyroid dise ase Family History Medical History Relation Name Comments Hypothyroidism Other Family histor y of Hypothyroidism; Relation Name Status Comments Other Social History Tobacco Use Types Packs/Day Years Used Date Smoking Tobacco: Never Assessed Alcohol Use Standard Drinks/Week Comments Yes 0 (1 standard drink = 0.6 oz pur e alcohol) Comments Unknown Sex and Gender Information Value Date Recorded Sex Assigned at Not on file Legal Sex Female 1:17 AM CARE AID Gender Identity Not on file Sexual Orientation Not on file Obstetrics History Last Filed Vital Signs Vital Sign Reading Time Taken Comments Blood Pressure 132/84 10/26/2024 11:35 AM CDT Pulse 71 10/26/2024 11:35 AM CDT Temperature 36.8 C (98.2 F) 12/02/2019 9:11 AM CDT Respiratory Rate - - Oxygen Saturation 97% 10/26/2024 11:35 AM CDT Inhaled Oxygen Concentration - - Weight 85.3 kg (188 lb) 10/26/2024 11:35 AM CDT Height 165.1 cm (5' 5) 10/26/2024 11:35 AM CDT Body Mass Index 31.28 10/26/2024 11:35 AM CDT Plan of Treatment Health Maintenance Due Date Last Done Comments Cervical Cancer Screening 1971 Depression Screening 1971 Hepatitis B Screening 05/26/1989 Regular Well Visit/Exam 18-64 05/26/1989 Pneumococcal vaccine <65 (1 of 2 - PCV) 05/26/1990 Zoster Vaccine (1 of 2) 06/24/2022 04/29/2022, 12/17 Influenza Vaccine (#1) 2024 , 01/09/2019, 11/12/2017, Additional history exists Colon Cancer Screening-Colonoscopy 11/06/20242014 Breast Cancer Screening-Mammogram 06/09/2025 06/09/2024, 06/09/2024, 06/09/2023, Additional history exists DTaP/Tdap/Td Vaccine (3 - Td or Tdap) 05/12/2032 05/12/2022, 02/02/2012, 07/19/1987 Hepatitis C Screening Completed 11/18/2019 Procedures Procedure Name Priority Date/Time Associated Diagnosis Comments SCAN - LABS 10/27/2024 9:57 AM CDT HEPATITIS C ANTIBODY Routine 11/18/2019 2:58 PM CDT Polyarthralgia Encounter for screening for other viral diseases COLONOSCOPY REPORT 11/06/2014 from Last 3 Months or Most Recently Relevant to Health Maintenance Results * SCAN - LABS (10/27/2024 9:57 AM CDT) Sharda MCGUIRE Edited Re sult - Final * Hepatitis C antibody (11/18/2019 2:58 PM CDT) Hep C Ab NON-REACTI VE NON-REACT KAROL [facility] SIGNAL TO CUT-OFF 0.01 <1.00 [facility] Comment: HCV antibody was non-reactive. There is no laboratory evidence of HCV infection. In most cases, no further action is required. However, if recent HCV exposure is suspected, a test for HCV RNA (test code 53512) is suggested. For additional information please refer to http://education.[employer]/faq/QPR44a5 (This link is being provided for informational/ educational purposes only.) Blood specimen (specimen) 11/18/2019 2:58 PM CDT 11/18/2019 2:59 PM CDT Sharda MCGUIRE LAB MICROBIOLOGY - GENERA L ORDERABLES Final Result [facility] [id number] [phone] * COLONOSCOPY REPORT (11/06/2014) Anatomical Region Laterality Modality Other Narrative 11/06/2014 Ordered by an unspecified provider. Historical Provider GI PROCEDURE ORDERABLES F inal Result from Last 3 Months or Most Recently Relevant to Health Maintenance Insurance [facility] [id number] Care Teams Lighting Fixture Installer Relationship Specialty Start Date End Date Faizan Denson MD [address] [place] [address] PCP - General Pediatrics 10/11/19 John Dunlap MD [address] [place] [id number] 10/11/19 Junior David MD [address] [place] [address] Consulting Physician Rheumatology 10/11/19
--- OUTSIDE RECORDS SUMMARY | 2024-11-09 07:38 | XMS_ITS | Patient Health Record ---
Author Organization [facility]ly [facility] Address [address] [place] [address] Care Team Providers Care Coordinate Measuring Equipment Operator Name Role Phone Dr. Faizan Denson Primary Care Provider [id number] Migration, Provider Unavailable Unavailable Allergies No Known Allergies Results Component Value Reference Range Notes Vitamin B12 Reviewed date:04/25/2024 11:40:59 AM Interpretation: Performing Lab: Notes/Report: Test Performed by: [address] [address] Senior Production Planner: Skip Tate DO Vitamin B12 Lvl 793 180-914 pg/mL Vitamin B12 Interpretation: Normal Range: 180-914 pg/mL Indeterminate: 140-180 pg/mL Deficient: <140 pg/mL Thyroid Stimulating Hormone Reviewed date:04/25/2024 11:48:18 AM Interpretation: Performing Lab: Notes/Report: Test Performed by: [address] [address] Senior Production Planner: Skip Tate DO TSH 5.10 0.45-5.33 mcIU/mL Folate Level Reviewed date:04/25/2024 11:48:18 AM Interpretation: Performing Lab: Notes/Report: Test Performed by: [address] [address] Senior Production Planner: Skip Tate DO Folate Lvl 6.4 5.9-24.8 ng/mL Reason For Referral Reason EGD and colonoscopy and GI Diagnosis 1 Screening for colon cancer (Z12.11) Diagnosis 2 Gastro-esophageal re flux disease with esophagitis, without bleeding (K21.00) Referral Organization [facility] Referring Provider First Name Dr. Gloria Referring Provider Last Name Janiya Referring Provider Speciality Pediatrics Referred Provider Specialty Gastroentero logy General Notes SoConsueloMirella 10/17 09:39:27 AM CDT >Smith or shayy or Thuan Hall Augustina 11/02/2024 03:43:58 PM CDT >Referral faxed to [facility] [phone] Referral Priority Routine Medications Medication SIG (Take, Route, Frequency, Duration) Notes Start Date End Date Status Vyvanse 70 MG Capsule 1 capsule in the morning oral Once a day; Duration: 30 days 11/02/2024 Active Diclofenac Sodium ER 100 MG Tablet Extended Release 24 Hour TAKE 1 TABLET BY MOUTH EVERY DAY WITH A MEAL Oral daily; Duration: 30 days Active Atenolol 25 MG Tablet 1 tablet Orally twice a day; Duration: 90 days 04/22/2024 Active Isosorbide Dinitrate 30 MG Tablet 1 tablet Orally daily 04/22/2024 Active SUMAtriptan Succinate 50 MG Tablet Oral; Duration: 0 04/30/2021 Active Methotrexate Sodium 2.5 MG Tablet 5 tablets Orally weekly 04/22/2024 Active Atorvastatin Calcium 40 MG Tablet 1 tablet Orally Once a day Active Folic Acid oral; Duration: 0 *Pick strength-form from [employer] for eRX* 07/08/2023 Active Desvenlafaxine ER 50 MG Tablet Extended Release 24 Hour 1 tablet Orally Once a day; Duration: 30 days 04/22/2024 Active Famotidine 40 MG Tablet 1 Oral every day; Duration: 90 Not-Taking Desvenlafaxine Succinate ER 50 MG Tablet Extended Release 24 Hour 3 tablets Orally Once a day; Duration: 90 days Total dose daily dose of 150 mg/ day Active Immunizations Vaccine Route Administration Date Status Comme nts Zoster IM Intramuscular 12/17/2021 Administered ,[facility] : New immunization record ,immstatus : Complete Zoster IM Intramuscular 04/29/2022 Administered ,[facility] : New immunization record ,immstatus : Complete Tdap Unknown 02/02/2012 Administered Source [facility] Code: : Tdap IM Intramuscular 05/12/2022 Administered ,[facility] : New immunization record ,immstatus : Complete Td (adult), adsorbed Unknown 07/19/1987 Administered Source [facility] Code: : MMR Unknown 05/16/1994 Administered Source [facility] Code: : Influenza, quadrivalent (IIV4), split virus, 6-35 months dosage IM Intramuscular 11/08/2016 Administered Source [facility] Code: : Influenza, quadrivalent (IIV4), split virus, 6-35 months dosage IM Intramuscular 01/09/2019 Administered Source [facility] Code: : Problems Problem Type SNOMED Code ICD Code Onset Dates Problem Status W/U Status Risk Notes Problem Enteroviral vesicular pharyngitis (407351719) Enteroviral vesicular pharyngitis (B08.5) 022 Inactive confirmed Problem Hypothyroidism (79300502) Hypothyroidism, unspecified (E03.9) Active confirmed Problem Mixed hyperlipidemia (363083436) Mixed hyperlipidemia (E78.2) 022 Active confirmed Problem Anxiety disorder (607405420) Other specified anxiety disorders (F41.8) Active confirmed Problem Attention deficit hyperactivity disorder (774779873) Attention-deficit hyperactivity disorder, unspecified type (F90.9) Active confirmed Problem Migraine without aura, not refractory (disorder) (173741073) Migraine, unspecified, not intractable, without status migrainosus (G43.909) Active confirmed Problem Essential hypertension (64671765) Essential (primary) hypertension (I10) 024 Active confirmed Problem Cholelithiasis without obstruction (75876085) Calculus of gallbladder without cholecystitis without obstruction (K80.20) 017 Problem resolved confirmed Problem Rosacea (566442369) Rosacea, unspecified (L71.9) Active confirmed Problem Disorder of skin AND/OR subcutaneous tissue (62428866) Disorder of the skin and subcutaneous tissue, unspecified (L98.9) 023 Active confirmed Problem Rheumatoid arthritis (98647372) Rheumatoid arthritis with rheumatoid factor of multiple sites without organ or systems involvement (M05.79) Active confirmed Problem Pain of right knee region (finding) (409115546951057) Pain in right knee (M25.561) 016 Problem resolved confirmed Problem Pain of left knee joint (finding) (955831530445940) Pain in left knee (M25.562) Problem resolved confirmed Problem Pain of knee region (finding) (7222593200) Pain in unspecified knee (M25.569) Problem resolved confirmed Problem Pain in right foot (754063463224194) Pain in right foot (M79.671) Active confirmed Problem Pain in left foot (282133067873128) Pain in left foot (M79.672) Active confirmed Problem Disorder of soft tissue (64120988) Other specified soft tissue disorders (M79.89) Inactive confirmed Problem Menopause (647203097) Menopausal and female climacteric states (N95.1) Active confirmed Problem Heart murmur (finding) (14345976) Cardiac murmur, unspecified (R01.1) Active confirmed Problem Elevated blood pressure reading without diagnosis of hypertension (189478206) Elevated blood-pressure reading, without diagnosis of hypertension (R03.0) Problem resolved confirmed Problem Dyspnea (537868380) Other forms of dyspnea (R06.09) Active confirmed Problem Fatigue (99979580) Other fatigue (R53.83) Active confirmed Problem Localized edema (9076078) Localized edema (R60.0) 023 Active confirmed Problem Jaw pain (018557308) Jaw pain (R68.84) Inactive confirmed Problem 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 Problem Proteinuria (00107840) Proteinuria, unspecified (R80.9) 016 Problem resolved confirmed Problem Solitary pulmonary nodule (908436375) Solitary pulmonary nodule (R91.1) Active confirmed Problem Open bite of right upper arm, initial encounter (S41.151A) Problem resolved confirmed Problem Laceration of right forearm (disorder) (02236988834865811) Laceration without foreign body of right forearm, initial encounter (S51.811A) 03/27/2 023 Problem resolved confirmed Problem Dog bite (060691723) Bitten by dog, initial encounter (W54.0XXA) 023 Problem resolved confirmed Problem School admission medical examination (838222640) Encounter for examination for admission to educational institution (Z02.0) 017 Problem resolved confirmed Problem Vaccination given (856159813) Encounter for immunization (Z23) 023 Problem resolved confirmed Problem Family history of ischemic heart disease (715626770) Family history of ischemic heart disease and other diseases of the circulatory system (Z82.49) 022 Active confirmed Problem Gastroesophageal reflux disease with esophagitis (disorder) (457442723) Gastro-esophageal reflux disease with esophagitis, without bleeding (K21.00) 022 Active confirmed Vital Signs Heart Rate 85 /min 10/26/2024 Temperature 97.0 degrees Fahrenheit 10/26/2024 Respiratory Rate 18 /min 04/22/2024 Blood pressure diastolic 78 mm Hg 10/26/2024 Oximetry 99 % 10/26/2024 Height-cm 167.64 cm 10/26/2024 Weight-kg 85.28 kg 10/26/2024 Height 66.00 in 10/26/2024 Blood pressure systolic 126 mm Hg 10/26/2024 Weight 188.0 lbs 10/26/2024 BMI 30.34 kg/m2 10/26/2024 Encounters Encounter Location Date Provider Diagnosis [address] [address] 04/22/2024 Dr. Faizan Denson Mixed hyperlipidemia E78.2 ; Essential (primary) hypertension I10 ; Rosacea, unspecified L71.9 ; Other fatigue R53.83 ; Screening for colon cancer Z12.11 and Other specified anxiety disorders F41.[address] [address] 10/26/2024 Dr. Faizan Denson Essential (primary) hypertension I10 ; Mixed hyperlipidemia E78.2 ; Other specified anxiety disorders F41.8 ; Postmenopausal Z78.0 ; Blood glucose elevated R73.9 ; Leg swelling M79.89 ; Screening for colon cancer Z12.11 and Gastro-esophageal reflux disease with esophagitis, without bleeding K21.[address] [address] 01/16/2024 Provider Migration [address] [address] 01/17/2024 Provider Migration [address] [address] 04/14/2024 Dr. Faizan Denson Essential (primary) hypertension I10 ; Rheumatoid arthritis with rheumatoid factor of multiple sites without organ or systems involvement M05.79 ; Mixed hyperlipidemia E78.2 ; Gastro-esophageal reflux disease with esophagitis, without bleeding K21.00 and Hypothyroidism, unspecified E03.[address] [address] 04/25/2024 Dr. Faizan Denson Hypothyroidism, unspecified E03.[address] [address] 06/13/2024 Dr. Faizan Denson [address] [address] 08/01/2024 Dr. Faizan Denson Attention-deficit hyperactivity disorder, unspecified type F90.9 and Mild depression F32.A [address] [address] 08/12/2024 Dr. Faizan Denson [address] [address] 08/23/2024 Dr. Faizan Denson Rheumatoid arthritis with rheumatoid factor of multiple sites without organ or systems involvement M05.[address] [address] 08/30/2024 Dr. Faizan Denson Attention-deficit hyperactivity disorder, unspecified type F90.[address] [address] 10/03/2024 Dr. Faizan Denson Attention-deficit hyperactivity disorder, unspecified type F90.9 ; Mixed hyperlipidemia E78.2 ; Essential (primary) hypertension I10 ; Menopausal and female climacteric states N95.1 ; Gastro-esophageal reflux disease with esophagitis, without bleeding K21.00 and Hypothyroidism, unspecified E03.[address] [address] 11/02/2024 Dr. Faizan Denson Attention-deficit hyperactivity disorder, unspecified type F90.9 Assessments Encounter Date Diagnosis (ICD Code) Assessment Notes Treatment Notes Treatment Clinical Notes Section Notes 08/30/2024 Attention-deficit hyperactivity disorder, unspecified type (ICD-10 - F90.9) 08/23/2024 Rheumatoid arthritis with rheumatoid factor of multiple sites without organ or systems involvement (ICD-10 - M05.79) 04/22/2024 Mixed hyperlipidemia (ICD-10 - E78.2) The plan today is to cut her cholesterol medicine in half and then re-evaluate in 3 to 6 months and if things continue to go well continue to cut the medicine in half 2 more times and then probably will discontinue the medicine. In the meantime she needs to continue with her vigorous diet and exercise program that she's already started patients made some good Lifestyle Changes. -Continue to make her low carbohydrate breakfast and continue to exercise vigorously 10/03/2024 Attention-deficit hyperactivity disorder, unspecified type (ICD-10 - F90.9) 04/22/2024 Essential (primary) hypertension (ICD-10 - I10) 11/02/2024 Attention-deficit hyperactivity disorder, unspecified type (ICD-10 - F90.9) 10/26/2024 Essential (primary) hypertension (ICD-10 - I10) 08/01/2024 Attention-deficit hyperactivity disorder, unspecified type (ICD-10 - F90.9) 08/01/2024 Mild depression (ICD-10 - F32.A) 04/25/2024 Hypothyroidism, unspecified (ICD-10 - E03.9) 04/14/2024 Essential (primary) hypertension (ICD-10 - I10) 04/14/2024 Rheumatoid arthritis with rheumatoid factor of multiple sites without organ or systems involvement (ICD-10 - M05.79) 10/03/2024 Mixed hyperlipidemia (ICD-10 - E78.2) 04/22/2024 Rosacea, unspecified (ICD-10 - L71.9) 10/26/2024 Mixed hyperlipidemia (ICD-10 - E78.2) 10/26/2024 Other specified anxiety disorders (ICD-10 - F41.8) 04/22/2024 Other fatigue (ICD-10 - R53.83) 10/03/2024 Essential (primary) hypertension (ICD-10 - I10) 04/14/2024 Mixed hyperlipidemia (ICD-10 - E78.2) 04/14/2024 Gastro-esophageal reflux disease with esophagitis, without bleeding (ICD-10 - K21.00) 10/03/2024 Menopausal and female climacteric states (ICD-10 - N95.1) 04/22/2024 Screening for colon cancer (ICD-10 - Z12.11) 10/26/2024 Postmenopausal (ICD-10 - Z78.0) 10/26/2024 Blood glucose elevated (ICD-10 - R73.9) 10/03/2024 Gastro-esophageal reflux disease with esophagitis, without bleeding (ICD-10 - K21.00) 04/22/2024 Other specified anxiety disorders (ICD-10 - F41.8) 10/26/2024 Leg swelling (ICD-10 - M79.89) 04/14/2024 Hypothyroidism, unspecified (ICD-10 - E03.9) 10/26/2024 Screening for colon cancer (ICD-10 - Z12.11) 10/03/2024 Hypothyroidism, unspecified (ICD-10 - E03.9) 10/26/2024 Gastro-esophageal reflux disease with esophagitis, without bleeding (ICD-10 - K21.00) 10/26/2024 Other A/P Hypertension: - Blood pressure well controlled on current atenolol regimen. - Continue atenolol twice daily. Monitor blood pressure. Recheck at next visit in six months. - If blood pressure increases or symptoms develop, contact clinic for earlier evaluation. Hyperlipidemia: - Lipid levels currently reasonable; previous increase attributed to missed doses of cholesterol medication. - Continue current reduced dose of cholesterol medication. Repeat lipid panel with next routine labs in six months. - If cholesterol levels rise significantly or medication tolerance changes, consider earlier follow-up or medication adjustment. Menopausal symptoms: - Findings consistent with menopause; ovaries showing decreased function due to age. - No pharmacologic intervention recommended at this time. Discussed trial of [id number] holistic supplements for hot flashes. Advised weight-bearing exercise, adequate calcium (1500 mg total daily from diet and supplements), and vitamin D (1000 units daily). Vitamin D level to be checked at next visit. - If hot flashes or menopausal symptoms worsen or become intolerable, consider further evaluation or alternative therapies. Esophageal spasm/chest pain with reflux symptoms: - Chest pain episodes likely due to esophageal spasm and gastroesophageal reflux; cardiac evaluation unremarkable. - Continue as needed use of nitroglycerin for relief of esophageal spasm symptoms. No ongoing prescription heartburn medication as [id number] use is sufficient. Referral to gastroenterology for upper endoscopy recommended (not urgent) to further evaluate esophagus and for routine colonoscopy as appropriate. - If chest pain becomes more frequent, severe, or associated with other symptoms, seek urgent evaluation. Edema in right lower extremity: - Unilateral lower extremity edema, chronic, likely related to prior injury; cardiac etiology considered less likely but not excluded. - Ordered echocardiogram to assess cardiac function and rule out cardiac cause for edema. Continue use of compression stockings as tolerated. - If swelling worsens, becomes bilateral, or is associated with other symptoms (pain, redness, shortness of breath), contact clinic promptly. Headache/migraine: - Migraines currently well controlled, no recent use of sumatriptan required. - Continue current management. Use sumatriptan as needed if migraines recur. - If headaches become more frequent or severe, consider earlier evaluation. Bone health/osteopenia risk: - Increased risk of bone density loss associated with menopause. - Advised weight-bearing exercise, daily calcium (1500 mg total), and vitamin D (1000 units daily). Will check vitamin D level at next visit. - If bone pain or fracture occurs, seek evaluation for bone density and further management. Plan Of Treatment Pending Test Test Name Order Date Echocardiogram 10/26/2024 Vitamin B12 04/14/2024 Magnesium, Serum 04/14/2024 TSH 04/14/2024 CBC With Differential/Platelet Vitamin D, 25-Hydroxy 04/14/2024 Lipid Panel 04/14/2024 Comp. Metabolic Panel (14) 04/14/2024 TSH Reflex Free T4 04/22/2024 CBC w Auto Diff 10/03/2024 Comprehensive Metabolic Panel 10/03/2024 Lipid Panel {Chol, Trig, HDL, LDL} 10/03 Magnesium 10/03/2024 Follicle Stimulating Hormone Level 10/03 Luteinizing Hormone 10/03/2024 Estradiol Sensitive Level 10/03/2024 Vitamin B12 Folate 04/22/2024 Free T4 And TSH 10/03/2024 Future Test Test Name Order Date Hemoglobin A1c {Glycosylated} 04/25/2025 Vitamin D 25 Hydroxy 04/25/2025 CBC w Auto Diff 04/25/2025 Comprehensive Metabolic Panel 04/25/2025 Lipid Panel {Chol, Trig, HDL, LDL} 04/25 Next Appt Details Provider Name:Dr. Faizan lockhart, 04/25/2025 11:00:00 AM, [address] [facility], [place], [address], [phone] Insurance Providers Payer Name Payer Address Payer Phone Subscriber Number Group Number Insured Name Patient Relationship to Insured Coverage Start Date Coverage End Date [employer] [address] [place] [address] [id number] Stefani Huang Self - patient is the insured Medical (General) History Surgical History Surgery Date(Month/Year) hysterectomy ,notes : Vagina l Hysterectomy and bilateral salpingectomy 04/10/21 Heart Catheterization ,notes : Minor Luminal irregularities in all coronaries. 10/2021
--- OUTSIDE RECORDS SUMMARY | 2024-11-09 07:38 | XMS_ITS | Encounter Summary ---
Author Organization [facility] Address [address] [place] [address] Care Team Providers Care Parts Technician Name Role Phone Faizan Denson MD Primary Care Provider Encounter Details Date Type Department Care Team (Late st Contact Info) Description 02/01/2016 Abstract [facility] CONVERSION [address] [place] [address] , Generic Conversion, Social History Tobacco Use Types Packs/Day Years Used Date Smoking Tobacco: Never Assessed Comments Unknown Sex and Gender Information Value Date Recorded Sex Assigned at Not on file Legal Sex Female 5:46 PM CDT Gender Identity Not on file Sexual Orientation Not on file documented as of this encounter Plan of Treatment Not on file documented as of this encounter Visit Diagnoses Not on filedocumented in this encounter Care Teams Parts Technician Relationship Specialty Start Date End Date Faizan Denson MD [address] [place] [address] PCP - General PEDIATRICS 10/25/21 documented as of this encounter
--- OUTSIDE RECORDS SUMMARY | 2024-11-09 07:38 | XMS_ITS | Encounter Summary ---
Author Organization [facility] Address [address] [place] [address] Care Team Providers Care Continuous Churn Buttermaker Name Role Phone Faizan Denson MD Primary Care Provider [phone] Encounter Details Date Type Department Care Team (Late st Contact Info) Description 10/29/2021 Hospital Orders Only [facility] [employer] [place] [address] William Kent MD,PHD Social History Tobacco Use Types Packs/Day Years [...] AM CDT documented as of this encounter Functional Status * Calculated C-SSRS Risk Score (Lifetime/Recent) Answer Date of Assessment Author Status No Risk Indicated 10/30/2021 8:[address] marva Walls RN Active * Ramsey Suicide Severity Rating Scale (Screener/Recent Self-Report) Question Answer Date of Assessment Author Status 1. Wish to be (Past 1 Month) No 10/30/2021 8:33 AM CDT Karmen Walls RN A ctive 2. Non-Specific Active Suicidal Thoughts (Past 1 Month) No 10/30/2021 8:33 AM LUCIAT Karmen Walls RN A ctive 6. Suicidal Behavior (Lifetime) No 10/30/2021 8:33 AM Karmen Dillon RN A ctive documented as of this encounter Plan of Treatment Not on file documented as of this encounter Visit Diagnoses Not on filedocumented in this encounter Care Teams Continuous Churn Buttermaker Relationship Specialty Start Date End Date Faizan Denson MD [address] [place] [address] PCP - General PEDIATRICS 10/25/21 documented as of this encounter
--- OUTSIDE RECORDS SUMMARY | 2024-11-09 07:38 | XMS_ITS | Clinical Summary ---
Author Organization [facility] [place] Address [address] [place] [address] Phone Care Team Providers Care Automotive Diagnostic Technician Name Role Phone Jeremiah Denson MD Primary Care Provider Medications atenoloL (TENORMIN) 25 mg tablet Take 25 mg by mouth daily. Active lisdexamfetamine dimesylate (VYVANSE ORAL) Take 80 mg by mouth. Active DICLOFENAC SODIUM ORAL Take 100 mg by mouth. Active sumatriptan succinate (IMITREX ORAL) Take by mouth Continuous as needed. Active desvenlafaxine (PRISTIQ) 100 mg Extended Release 24 hour tablet Take by mouth daily with breakfast. Active aspirin (ECOTRIN EC) 81 mg Tablet, Delayed Release (E.C.) Take 81 mg by mouth daily. Active atorvastatin (LIPITOR) 40 mg tablet Take 20 mg by mouth daily. 3 Active esomeprazole (NexIUM) 20 mg Capsule, Delayed Release(E.C.) Take 20 mg by mouth. Active famotidine (PEPCID) 40 mg tablet Take 40 mg by mouth daily. Active folic acid (FOLVITE) 1 mg tablet Take 1 Tablet by mouth daily. 4 Active isosorbide mononitrate (IMDUR) 30 mg Extended Release 24 hour tablet Take 30 mg by mouth daily. Active methotrexate (RHEUMATREX) 2.5 mg Tablet TAKE 5 TABLETS BY MOUTH 1 TIME A WEEK 4 Active nitroglycerin (NITROSTAT) 0.4 mg Tablet, Sublingual PLACE ONE TABLET UNDER THE TONGUE EVERY 5 MINUTES FOR CHEST PAIN. DO NOT EXCEED 3 DOSES IN 15 MINUTES 2 Active pantoprazole (PROTONIX) 40 mg Tablet, Delayed Release (E.C.) Take 40 mg by mouth daily. 3 Active Active Problems Patient Care Coordination No te Formatting of this note migh t be different from the original. Primary Care: Jeremiah Denson MD Referring Provider: No referring provider defined for this encounter. Other: Dr. Mirella Florence MD Problem Noted Date Diagnosed Date At high risk for breast cancer 05/06/2020 Fibrocystic breast changes of both breasts 05/06 Dense breast tissue on mammogram 05/06/2020 Cyst of right breast 11/10/2017 Breast lump 03/25/2017 Family history of breast cancer in sister 2009 Overview (08/31/2009): Mother and sister Fibroadenoma of breast 08/31/2009 Overview (08/31/2009): Core biopsy left 05-21-2009 Diffuse cystic mastopathy 05/04/2009 Hearing loss Resolved Problems Problem Noted Date Diagnosed Date Resolved Date Family history of brain cancer 08/25/2008 08/31/2009 Overview (08/25/2008): Maternal grandmother had breast cancer. Mother had breast cancer age 64 sister had breast cancer age 28. Sister tested negative for BRCA1 and BRCA2 Encounters Date Type Department Care Team Description 11/01/2024 External Device Data ST[facility] ABSTRACTION Provider, Abstract 09/20/2024 External Device Data [facility] ABSTRACTION Provider, Abstract 08/31/2024 External Device Data [facility] ABSTRACTION Provider, Abstract 08/31/2024 External Device Data [facility] ABSTRACTION Provider, Abstract 08/30/2024 External Device Data [facility] ABSTRACTION Provider, Abstract from Last 3 Months Immunizations Immunization Administration Dates Next Due Influenza Seasonal Unspecified Formulation IM Family History Medical History Relation Name Comments Diabetes Father Heart Disease Father Cancer Maternal Grandfather Breast Cancer Maternal Grandmother Age at Dx unknown Breast Cancer Mother Radha Thiems Cancer Mother Radha Thiems Cancer Paternal Grandfather Breast Cancer Sister 1 Antonette BRCA neg. Pass ed Feb 2012 Cancer Sister 1 Antonette Healthy Sister 2 Christina Harden Ovarian Cancer Neg Hx Relation Name Status Comments Father Maternal Grandfather Maternal Grandmother Mother Radha Rivera Alive Paternal Grandfather Sister 1 Antonette Sister 2 Christina Harden Alive Social History Tobacco Use Types Packs/Day Years Used Date Smoking Tobacco: Never Smokeless Tobacco: Never Alcohol Use Standard Drinks/Week Comments Yes 0 (1 standard drink = 0.6 oz pur e alcohol) rarely Feeling Safe Answer Date Recorded Within the last year, have y ou been afraid of your partner or ex-partner? No 06/09/2023 Within the last year, have y ou been humiliated or emotionally abused in other ways by your partner or ex-partner? No Within the last year, have y ou been kicked, hit, slapped, or otherwise physically hurt by your partner or ex-partner? No 06/09/2023 Within the last year, have y ou been raped or forced to have any kind of sexual activity by your partner or ex-partner? No 06/09/2023 Feeling Safe Answer Date Recorded Do you worry about feeling s afe and happy with the people in your life? 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 Gender Identity Not on file Sexual Orientation Not on file Occupation Industry Job Start Date Job End Date Not on file Not on file Not on file Not on file Not on file Not on file Not on file Not on file Last Filed Vital Signs Vital Sign Reading Time Taken Comments Blood Pressure 124/82 06/09/2024 10:09 AM CDT Pulse 67 06/09/2023 10:13 AM CDT Temperature 36.4 C (97.6 F) 01/29/2017 12:28 PM FABRIC WORKER Respiratory Rate - - Oxygen Saturation - - Inhaled Oxygen Concentration - - Weight 85.3 kg (188 lb) 06/09/2024 10:09 AM CDT Height 170.2 cm (5' 7) 06/09/2024 10:09 AM CDT Body Mass Index 29.44 06/09/2024 10:09 AM CDT Plan of Treatment Upcoming Encounters Date Type Department Care Team (Late st Contact Info) Description 01/05/2025 9:00 AM FABRIC WORKER Appointment [facility] [address] [place] [address] [place] Becerra, MERCHANDISE PRESENTATION MANAGER [address] [place] [phone] 06/22/2025 9:50 AM CDT Appointment [facility] [address] [place] [address] Shawnee Becerra, MERCHANDISE PRESENTATION MANAGER [address] [place] [address] 06/22/2025 10:45 AM CDT Office Visit [facility] Breast Surgery [address] [place] [address] [place] Becerra, MERCHANDISE PRESENTATION MANAGER [address] [place] [address] Health Maintenance Due Date Last Done Comments Pre-Diabetes and Diabetes Screening 1970 HEPATITIS B VACCINES (1 of 3 - 19+ 3-dose series) 05/26/1990 HPV/Cotest (21-29) 05/26/1992 HPV/Cotest (30-65) 05/26/2001 COLORECTAL SCREENING 05/26/2016 Colorectal Cancer Screening 05/26/2016 FIT-DNA Q 3 years 05/26/2016 FIT/FOBT Q 1 year 05/26/2016 Flex Sig/CT Colonography Q 5 years 05/26/2016 CERVICAL CANCER SCREENING 08/06/2020 PAP SMEAR 08/06/2020 08/06/2017, 08/06/2017 ZOSTER VACCINE (1 of 2) 05/26/2021 DTAP/TDAP/TD VACCINES (2 - T d or Tdap) 02/01/2022 02/02/2012 INFLUENZA VACCINE (#1) 2024 11/12/2017 BREAST CANCER SCREENING 06/09/2025 06/10/19, 06/09/2023, 06/05/2022, Additional history exists Procedures Procedure Name Priority Date/Time Associated Diagnosis Comments MAMMO 3D MATTHEW SCREEN BILAT W OR WO CAD Routine 06/09/2024 9:37 AM CDT Fibrocystic breast disease (FCBD), unspecified laterality Family history of breast cancer in sister Fibroadenoma of breast, unspecified laterality At high risk for breast cancer Heterogeneously dense tissue of both breasts on mammography from Last 3 Months or Most Recently Relevant to Health Maintenance Results * MAMMO 3D MATTHEW SCREEN BILAT W OR WO CAD (06/09/2024 9:37 AM CDT) Anatomical Region Laterality Modality Breast Bilateral Mammography 06/09/2024 9:37 AM CDT Impressions 06/09/2024 10:53 AM CDT IMPRESSION: No suspicious findings to suggest malignancy in either breast. Annual mammography is recommended. OVERALL FINAL ASSESSMENT: BI-RADS CATEGORY 1 - Negative DICTATION LOCATION: [facility] 06/09/2024 10:53 AM CDT BILATERAL SCREENING DIGITAL MAMMOGRAM WITH 3D TOMOSYNTHESIS AND CAD DATE: 06/09/2024 9:37 AM HISTORY: Routine screening. TECHNIQUE: Full-field digital craniocaudal and mediolateral oblique projections of both breasts were obtained. Low-dose full-field digital breast tomosynthesis examination was performed with 2D and 3D acquisitions. Examination is read in conjunction with computer aided detection. COMPARISON: Prior available breast imaging exams. BREAST COMPOSITION: There are scattered areas of fibroglandular density FINDINGS: No suspicious mass, suspicious microcalcifications, or architectural distortion is identified in either breast. Computer aided detection was used in the interpretation of this examination. Mirella Florence MD MAMMO ORDERABLES Final R esult from Last 3 Months or Most Recently Relevant to Health Maintenance Insurance [facility] [employer] Care Teams Automotive Diagnostic Technician Relationship Specialty Start Date End Date Jeremiah Denson MD PCP - General Family Practice 01/14/16
== END 2024-11-09 07:25 | disposition home or self-care (01) ==
LOC: ANHCARD 07:28
PROVIDERS: PCP Pediatrics; Visit Provider Pediatrics
DX: R93.1 Abnormal findings on diagnostic imaging of heart and coronary circulation (principal); M79.89 Other specified soft tissue disorders
CPT/HCPCS: 93306

== ENCOUNTER 2025-01-09 00:28 | Day surgery (SDC) | payer OTHER, SELFPAY ==
--- OUTSIDE RECORDS SUMMARY | 2024-01-16 03:00 | XMS_ITS ---
Author Organization [facility] Address [address] [place] [address] Care Team Providers Care Process Inspector Name Role Phone Dr. Faizan Denson Primary Care Provider [phone] Migration, Provider Unavailable Unavailable REASON FOR VISIT [facility] Encounters Encounter Location Date Provider Diagnosis [facility] [address] [place] [address] 01/16/2024 Provider Migration Plan Of Treatment Medication Medication Name Sig Start Date Stop Date Notes Doxycycline Hyclate 100 MG Tablet 1 Oral two times a day; Duration: 05/01/2021 05/10/2021 Nitroglycerin 0.4 MG Tablet Sublingual Sublingual; Duration: 11/27/2021 12/06/2021 Vyvanse 70 MG Capsule 1 Oral every day; Duration: 04/26/2021 04/30/2021 Increased dose to 80 mg,discontinuereas on:Discontinued Aspirin 81 MG Tablet Chewable 1 Oral every day; Duration: 10/15/2021 01/12/2022 Atenolol 25 MG Tablet 2 Oral every day; Duration: 07/08/2023 01/03/2024 Cephalexin 500 MG Capsule 1 Oral three times a day; Duration: 10/04/2021 10/10/2021 Desvenlafaxine ER 100 MG Tablet Extended Release 24 Hour 1 Oral every day; Duration: 04/26/2021 05/25/2021 Aimovig 70 MG/ML Solution Auto-injector 1 Subcutaneous Monthly; Duration: 07/29/2022 10/26/2022 Famotidine 40 MG Tablet 1 Oral every day ; Duration: 07/08/2023 07/08/2023 Rx Refill Request,discontinu ereason:Refilled Isosorbide Mononitrate ER 30 MG Tablet Extended Release 24 Hour 1 Oral every day; Duration: 10/29/2021 01/26/2022 Chlorthalidone 25 MG Tablet 1/2 Oral every day; Duration: 0 04/30/2021 04/30/2021 ,discontinuereason :Discontinued valACYclovir HCl 1 GM Tablet 1 Oral three times a day; Duration: 11/27/2021 12/03/2021 Amoxicillin-Pot Clavulanate 875-125 MG Tablet 1 Oral two times a day; Duration: 05/12/2022 05/21/2022 Atorvastatin Calcium 40 MG Tablet 1 Oral every evening; Duration: 09/29/2022 06/25/2023 ,discontinuereason :Refilled Topiramate 100 MG Tablet 1 Oral two time s a day; Duration: 0 04/30/2021 04/30/2021 ,discontinuereason :Discontinued Diclofenac Sodium 50 MG Tablet Delayed Release 1 Oral every day; Duration: 10/15/2021 11/13/2021 Atorvastatin Calcium 20 MG Tablet 1 Oral every evening; Duration: 12/23/2021 07/29/2022 increased to 40mg,discontinuere ason:Discontinued Vyvanse 40 MG Capsule 2 Oral every day; Duration: 05/01/2021 07/29/2022 no longer covered by insurance.,discont inuereason:Discont inued Next Appt Details Provider Name:Dr. Faizan lockhart, 04/25/2025 11:00:00 AM, [address] [place], [address], [phone] Progress Notes * Dev HUANGB:1970 (54 yo F)Acc No.[id number]:01/16/2024 Patient: Marcela BURGOS Stefani :1970 A ge:53 Y S ex:Female Phone: Address:[address] [place] [address], [phone] * Refills Stop Cephalexin Capsule, 500 MG, Oral, 21, 1, three times a day, 7 Stop Famotidine Tablet, 40 MG, Oral, 90, 1, every day, 90 Stop Isosorbide Mononitrate ER Tablet Extended Release 24 Hour, 30 MG, Oral, 30, 1, every day, 30 Stop Famotidine Tablet, 40 MG, Oral, 90, 1, every day, 90 Stop Aimovig Solution Auto-injector, 70 MG/ML, Subcutaneous, 3, 1, Monthly, 90 Stop Atorvastatin Calcium Tablet, 40 MG, Oral, 90, 1, every evening, 90 Stop Diclofenac Sodium Tablet Delayed Release, 50 MG, Oral, 60, 2, every day, 30 Stop Vyvanse Capsule, 40 MG, Oral, 60, 2, every day, 30 Stop Atenolol Tablet, 25 MG, Oral, 30, 1, every day, 30 Stop Nitroglycerin Tablet Sublingual, 0.4 MG, Sublingual, 25, 1, 30 Stop Desvenlafaxine ER Tablet Extended Release 24 Hour, 100 MG, Oral, 30, 1, every day, 30 Stop Atorvastatin Calcium Tablet, 20 MG, Oral, 90, 1, every evening, 90 Stop Diclofenac Sodium Tablet Delayed Release, 50 MG, Oral, 30, 1, every day, 30 Stop valACYclovir HCl Tablet, 1 GM, Oral, 21, 1, three times a day, 7 Stop Atorvastatin Calcium Tablet, 40 MG, Oral, 90, 1, every evening, 90 Stop Chlorthalidone Tablet, 25 MG, Oral, 1/2, every day, 0 Stop Atenolol Tablet, 25 MG, Oral, 180, 2, every day, 90 Stop Famotidine Tablet, 40 MG, Oral, 90, 1, every day, 90 Stop Aspirin Tablet Chewable, 81 MG, Oral, 30, 1, every day, 30 Stop Atorvastatin Calcium Tablet, 20 MG, Oral, 90, 1, every evening, 90 Stop Vyvanse Capsule, 70 MG, Oral, 30, 1, every day, 30 Stop Famotidine Tablet, 40 MG, Oral, 30, 1, every day, 30 Stop Amoxicillin-Pot Clavulanate Tablet, 875-125 MG, Oral, 20, 1, two times a day, 10 Stop Doxycycline Hyclate Tablet, 100 MG, Oral, 20, 1, two times a day, 10 Stop Famotidine Tablet, 40 MG, Oral, 1, 1, every day, 1 Stop Nitroglycerin Tablet Sublingual, 0.4 MG, Sublingual, 25, 10 Stop Aimovig Solution Auto-injector, 70 MG/ML, Subcutaneous, 3, 1, Monthly, 90 Stop Atenolol Tablet, 25 MG, Oral, 60, 2, every day, 30 Stop Atorvastatin Calcium Tablet, 20 MG, Oral, 30, 1, every evening, 30 Stop Topiramate Tablet, 100 MG, Oral, 1, two times a day, 0 Stop valACYclovir HCl Tablet, 1 GM, Oral, 21, 1, three times a day, 7 Subjective: * Chief Complaints: * E MR-Zach Objective: Past Vitals:* 07/08/2023 BP: 124/82 mm Hg, HR: 74 /mi n, Oxygen sat %: 97 %, Wt: 188.50 lbs, Wt-k.50 kg * 07/29/2022 BP: 130/76 mm Hg, HR: 92 /mi n, Oxygen sat %: 92 %, Wt: 196.32 lbs, Wt-k.05 kg * * Date:
--- OUTSIDE RECORDS SUMMARY | 2024-01-17 03:00 | XMS_ITS ---
Author Organization [facility] Address [address] [place] [address] Care Team Providers Care Test Fixture Assembler Name Role Phone Dr. Faizan Denson Primary Care Provider [phone] Migration, Provider Unavailable Unavailable Allergies No Known Allergies REASON FOR VISIT EMR-Zach Medications Medication SIG (Take, Route, Frequency, Duration) Notes Start Date End Date Status Atorvastatin Calcium 40 MG Tablet 1 Oral every evening; Duration: 90 07/08/2023 04/02/2024 Active Methotrexate oral; Duration: 0 *Pick strength-form from Medispan for eRX* 07/08/2023 Active Vyvanse oral; Duration: 0 *Pick strength-form from Medispan for eRX* 07/08/2023 Active Folic Acid oral; Duration: 0 *Pick strength-form from Medispan for eRX* 07/08/2023 Active SUMAtriptan Succinate 50 MG Tablet Oral; Duration: 0 04/30/2021 Active Diclofenac Potassium 50 MG Tablet Oral; Duration: 0 10/15/2021 Active Famotidine 40 MG Tablet 1 Oral every day; Duration: 90 11/18/2023 05/15/2024 Active Encounters Encounter Location Date Provider Diagnosis [facility] [address] [place] [address] 01/17/2024 Provider Migration Plan Of Treatment Next Appt Details Provider Name:Dr. Faizan lockhart, 04/25/2025 11:00:00 AM, [address] [facility], [place], [address], [phone] Progress Notes * Daniela HUANG:1970 (54 yo F)Acc No.[id number]:01/17/2024 Patient: Stefani DOWNING :1970 A ge:53 Y S ex:Female Phone: Address:[address] [place] [address] [place], [address] Subjective: * Chief Complaints: * E MR-Zach * Surgical History: hysterectomy ,notes : Vaginal Hysterectomy and bilateral salpingectomy 04/10/21 Heart Catheterization ,notes : Minor Luminal irregularities in all coronaries. 10/2021 * Medications: T akingFamotidine 40 MG Tablet 1 Oral every day , stop date 05/15/2024Methotrexate oral , Notes to Pharmacist: *Pick strength-form from Medispan for eRX*SUMAtriptan Succinate 50 MG Tablet Oral Diclofenac Potassium 50 MG Tablet Oral Vyvanse oral , Notes to Pharmacist: *Pick strength-form from Medispan for eRX*Atorvastatin Calcium 40 MG Tablet 1 Oral every evening , stop date 04/02/2024Folic Acid oral , Notes to Pharmacist: *Pick strength-form from Medispan for eRX*Taking Famotidine 40 MG Tablet 1 Oral every day , stop date 05/15/2024Taking Methotrexate oral , Notes to Pharmacist: *Pick strength-form from Medispan for eRX*Taking SUMAtriptan Succinate 50 MG Tablet Oral Taking Diclofenac Potassium 50 MG Tablet Oral Taking Vyvanse oral , Notes to Pharmacist: *Pick strength-form from Medispan for eRX*Taking Atorvastatin Calcium 40 MG Tablet 1 Oral every evening , stop date 04/02/2024Taking Folic Acid oral , Notes to Pharmacist: *Pick strength-form from Medispan for eRX* * Allergies: N .K.D.A. Objective: Past Vitals:* 07/08/2023 BP: 124/82 mm Hg, HR: 74 /mi n, Oxygen sat %: 97 %, Wt: 188.50 lbs, Wt-k.50 kg * 07/29/2022 BP: 130/76 mm Hg, HR: 92 /mi n, Oxygen sat %: 92 %, Wt: 196.32 lbs, Wt-k.05 kg * * Date:
[2024-12-27 12:02] VITALS: BMI 29.0
--- OUTSIDE RECORDS SUMMARY | 2025-01-09 00:30 | XMS_ITS | Encounter Summary ---
Author Organization [facility] Address [facility] [place] [address] Care Team Providers Care Partner Manager Name Role Phone Faizan Denson MD Primary Care Provider [phone] Encounter Details Date Type Department Care Team (Late Contact Info) Description 11/16/2024 Results Follow-Up [facility], [address] [id number] Nelia Millard RN ECHO Social History Tobacco Use Types Packs/Day Years [...] as of this encounter Plan of Treatment Upcoming Encounters Date Type Department Care Team (Late st Contact Info) Description 12/11/2025 11:30 AM CDT [facility] [address] [place] [phone] Hank Robb MD [facility]. [address] [phone] documented as of this encounter Visit Diagnoses Not on filedocumented in this encounter Care Teams Partner Manager Relationship Specialty Start Date End Date Faizan Denson MD [address] [place] [address] PCP - General PEDIATRICS 10/25/21 documented as of this encounter
--- OUTSIDE RECORDS SUMMARY | 2025-01-09 00:30 | XMS_ITS | Encounter Summary ---
Author Organization [facility] Address [facility] [place] [address] Care Team Providers Care Business Banking Sales Assistant Name Role Phone Faizan Denson MD Primary Care Provider [phone] Encounter Details Date Type Department Care Team (Late st Contact Info) Description 11/11/2022 [place] Message [facility] [address] [place] [address] [facility] Provider Payment Plan Social History [...] Description 12/11/2025 11:30 AM CDT [facility] [address] [place] [phone] Hank Robb MD [facility]. [address] [address] documented as of this encounter Visit Diagnoses Not on filedocumented in this encounter Care Teams Business Banking Sales Assistant Relationship Specialty Start Date End Date Faizan Denson MD [address] [place], [place] [phone] PCP - General PEDIATRICS 10/25/21 documented as of this encounter
--- OUTSIDE RECORDS SUMMARY | 2025-01-09 00:30 | XMS_ITS | Clinical Summary ---
Author Organization [facility] [address] [facility] Address [address] [place] [address] Care Team Providers Care Handkerchief Presser Name Role Phone Faizan Denson MD Primary Care Provider John Dunlap MD Unavailable [phone] Junior David MD Unavailable Allergies No known [...] and forward all results. Rheumatoid arthritis of [facility] sites with negative rheumatoid factor 11/18/2019 Overview [...] joint. 12/10/2022 [place] 1:160 with negative RF, NICU RN, Sm, Scl70, SSA, SSB, chromatin, Jo1, centromere, [...] recently has followed with Dr. 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 For additional information please refer to http://education.PhoneTell/faq/DCH05i3 (This link is being provided for informational/ educational purposes only.) Blood specimen (specimen) 11/18/2019 2:58 PM CDT 11/18/2019 2:59 PM CDT [facility] MICROBIOLOGY - GENERA L ORDERABLES Final Result [facility] [employer] [place] [address] [phone] * COLONOSCOPY REPORT (11/06/2014) Anatomical Region Laterality Modality Other Narrative 11/06/2014 Ordered by an unspecified provider. Historical Provider GI PROCEDURE ORDERABLES F inal Result from Last 3 Months or Most Recently Relevant to Health Maintenance Insurance [facility] [id number] Care Teams Handkerchief Presser Relationship Specialty Start Date End Date Faizan Denson MD [address] [place] [address] PCP - General Pediatrics 10/11/19 John Dunlap MD [address] [place] [address] [place] [address] 10/11/19 Junior David MD [address] [place] [address] Consulting Physician Rheumatology 10/11/19
--- OUTSIDE RECORDS SUMMARY | 2025-01-09 00:30 | XMS_ITS | Encounter Summary ---
Author Organization [facility] Address [address] [place] [address] Care Team Providers Care Engineering Director Name Role Phone Faizan Denson MD Primary Care Provider [phone] Encounter Details Date Type Department Care Team (Late Contact Info) Description 12/03/2021 Abstract [facility] [address] [address] Cyril Adan MA Social History Tobacco Use [...] Description 12/11/2025 11:30 AM CDT [facility] [address] [place] [phone] Hank Robb MD [facility]. [address] [phone] documented as of this encounter Procedures Procedure Name Priority Date/Time Associated Diagnosis Comments COMPREHENSIVE METABOLIC PANEL Routine 06/16/2024 CBC, MANUAL DIFF Routine 06/16/2024 C-REACTIVE PROTEIN Routine 06/16/2024 COMPREHENSIVE METABOLIC PANEL Routine 11/02/2021 CBC, MANUAL DIFF Routine 11/02/2021 documented in this encounter Results * C-REACTIVE PROTEIN (06/16/2024) CRP 10.2 06/16/2024 us Default History Genericprovider LABORATORY Final Result * COMPREHENSIVE METABOLIC PANEL (06/16/2024) SODIUM S/P/B 138 GLUCOSE 102 mg/dL AST 47 BUN 22 CREATININE S/P/B 0.81 0.5 - 1.0 CALCIUM S/P/B 9.7 POTASSIUM S/P/B 4.5 CHLORIDE S/P/B 98 ALT 48 GFR ESTIMATE 87 us Default History Genericprovider LABORATORY Final Result * CBC, MANUAL DIFF (06/16/2024) WBC 6.7 HGB 14.6 HCT 44.1 PLT 357 us Default History Genericprovider LABORATORY Final Result * COMPREHENSIVE METABOLIC PANEL (11/02/2021) BUN 16 CREATININE S/P/B 0.90 0.5 - 1.0 GFR ESTIMATE >60 us Default History Genericprovider LABORATORY Final Result * CBC, MANUAL DIFF (11/02/2021) HGB 13.5 HCT 40.8 us Default History Genericprovider LABORATORY Final Result documented in this encounter Visit Diagnoses Not on filedocumented in this encounter Care Teams Engineering Director Relationship Specialty Start Date End Date Faizan Denson MD [address] [place] [address] PCP - General PEDIATRICS 10/25/21 documented as of this encounter
--- OUTSIDE RECORDS SUMMARY | 2025-01-09 00:30 | XMS_ITS | Encounter Summary ---
Author Organization [facility] Address [address] [place] [address] Care Team Providers Care Mandrel Press Hand Name Role Phone Faizan Denson MD Primary Care Provider [phone] Encounter Details Date Type Department Care Team (Late Contact Info) Description 11/04/2021 [facility] Message Enc [facility] [address] [place] [address] [place], [facility] Provider Lab results Social History Tobacco Use [...] Description 12/11/2025 11:30 AM CDT Office Visit [facility] [address] [place] [phone] Hank Robb MD [facility]. [facility] [address] [place] [address] documented as of this encounter Visit Diagnoses Not on filedocumented in this encounter Care Teams Mandrel Press Hand Relationship Specialty Start Date End Date Faizan Denson MD [address] [place] [address] PCP - General PEDIATRICS 10/25/21 documented as of this encounter
--- OUTSIDE RECORDS SUMMARY | 2025-01-09 00:30 | XMS_ITS | Clinical Summary ---
Author Organization [facility] Address [facility] [place] [address] Care Team Providers Care Radio Electronics Technician Name Role Phone Faizan Denson MD Primary Care Provider [phone] Allergies No known active allergies Medications atenolol (TENORMIN) 25 MG tablet Take 1 tablet (25 mg total) by mouth 2 (two) times daily. 2 Active diclofenac XR (VOLTAREN XR) [...] DIRECTED NEEDED FOR MIGRAINE HEADACHE 2 Active aspirin EC (ECOTRIN) 81 MG tablet Take 1 tablet (81 mg total) by mouth daily. Active BLOOD PRESSURE CUFF, DME,Indications: Hypertension 1 Device by Does not apply route daily. 1 Device 2 Active Additional Information Patient not taking.Reported on 12/05/2024 atorvastatin (LIPITOR) 40 MG tablet Take 1 tablet (40 mg total) by mouth daily. 3 Active isosorbide mononitrate ER (IMDUR) 30 MG 24 hr tablet TAKE 1 TABLET BY MOUTH EVERY DAY 7 tablet 5 Active Additional Information Patient not taking.Reported on 12/05/2024 desvenlafaxine ER (PRISTIQ) 50 MG 24 hr tablet Take 3 tablets (150 mg total) by mouth daily. Active folic acid (FOLVITE) 1 MG tablet Take 1 tablet (1 mg total) by mouth daily. Active methotrexate (TREXALL) 2.5 MG tablet Take 5 tablets (12.5 mg total) by mouth once a week. Active Active Problems Problem Noted Date Diagnosed Date Hypertension, essential, benign 10/28/2021 Dyslipidemia 10/28/2021 Encounters Date Type Department Care Team Description 01/06/2025 8:55 AM OPERATING ENGINEER APPRENTICE - 01/06/2025 11:59 PM [facility] Hospital Encounter [facility] [address] [place] [address] Hank Rbob MD Snoring; Hypertension Discharge Disposition: Home or Self Care (Routine Discharge) 01/06/2025 Travel 12/05/2024 1:15 PM CDT [facility] [address] [place] [phone] Ruchi Lu FNP Follow Up (Echo done at [place]) 12/05/2024 Orders Only [facility] [address] [address] Hank Robb MD 12/05/2024 Travel 11/16/2024 Results Follow-Up [facility] [address] [address] Nelia Millard RN ECHO 11/15/2024 Telephone [facility] [address] [address] Ruchi Lu FNP Question; Results 11/09/2024 Scan [facility] [address] [address] Scanned, Doc Pccl from Last 3 Months Immunizations Immunization Administration [...] Sign Reading Time Taken Comments Blood Pressure 144/98 12/05/2024 1:11 PM CDT Pulse 79 12/05/2024 1:11 PM CDT Temperature 36.4 C (97.5 F) 10/30/2021 8:33 AM CDT Respiratory Rate 17 10/30/2021 12:45 PM CDT Oxygen Saturation 98% 12/05/2024 1:11 PM CDT Inhaled Oxygen Concentration - - Weight 85.7 kg (189 lb) 12/05/2024 1:11 PM CDT Height 165.1 cm (5' 5) 12/05/2024 1:11 PM CDT Body Mass Index 31.45 12/05/2024 1:11 PM CDT Plan of Treatment Upcoming Encounters Date Type Department Care Team (Late st Contact Info) Description 12/11/2025 11:30 AM CDT Office Visit [facility] [address] [place] [phone] Hank Robb MD [facility]. [address] [address] Health Maintenance Due Date Last Done Comments Cervical Cancer Screening Pap Smear (Age 30 to 64) Every 3 Years 1971 Colorectal Cancer Screening Colonoscopy (10 Years) 1971 Annual Physical 05/26/1974 COVID-19 Vaccine (#1) 05/26/1976 Hepatitis C 05/26/1989 Hepatitis B Vaccines (1 of 3 - 19+ 3-dose series) 05/26/1990 Cervical Cancer Screening Pap with HPV Testing (Age 30 to 64) Every 5 Years 05/26/2001 Cervical Cancer Screening with HPV 05/26/2001 Pneumococcal Vaccine: 50+ Years (1 of 1 - PCV) 05/26/2021 Zoster Vaccines (1 of 2) 05/26/2021 DTaP, Tdap and Td Vaccines (3 - Td or Tdap) 02/01/2022 02/02/2012, 07/19/1987, 07/19/1987 Influenza Adult (#1) 2024 01/09/2019, 11/12/2017, 11/08/2016 Mammogram Screening 06/09/2026 06/09/2024, 06/09/2023, 06/05/2022, Additional history exists Hepatitis A Vaccines Aged Out No long er eligible based on patient's age to complete this topic Meningococcal B Vaccine Aged Out No l onger eligible based on patient's age to complete this topic Meningococcal Vaccine Aged Out No zara brit eligible based on patient's age to complete this topic RSV Immunizations Under 20 Months Aged Out No longer eligible based on patient's age to complete this topic Procedures Procedure Name Priority Date/Time Associated Diagnosis Comments ECHO GENERIC (SCAN ORDER) Routine 11/09/2024 from Last 3 Months Results * ECHO (11/09/2024) Anatomical Region Laterality Modality Other us Doc Pccl Scanned SCANNING Edited Result - Final from Last 3 Months Insurance [employer] [facility] Advance Directives * Full Code (Latest Code Status on File) Date Activated Date Inactivated Comments 10/30/2021 9:49 AM 10/30/2021 2:57 PM Care Teams Radio Electronics Technician Relationship Specialty Start Date End Date Faizan Denson MD [address] [place] [address] PCP - General PEDIATRICS 10/25/21
--- OUTSIDE RECORDS SUMMARY | 2025-01-09 00:30 | XMS_ITS | Patient Health Record ---
Author Organization [facility] Address [address] [place] [address] Care Team Providers Care Archery Equipment Hay Sorter Name Role Phone Dr. Faizan Denson Primary Care Provider [phone] Migration, Provider Unavailable Unavailable Allergies No Known Allergies Results Component Value Reference Range Notes Folate Level Reviewed date:04/25/2024 11:48:18 AM Interpretation: Performing Lab: Notes/Report: Test Performed by: [address] [address] Tire Wrapper: Skip Tate DO Folate Lvl 6.4 5.9-24.8 ng/mL Thyroid Stimulating Hormone Reviewed date:04/25/2024 11:48:18 AM Interpretation: Performing Lab: Notes/Report: Test Performed by: [address] [address] Tire Wrapper: Skip Tate DO TSH 5.10 0.45-5.33 mcIU/mL Vitamin B12 Reviewed date:04/25/2024 11:40:59 AM Interpretation: Performing Lab: Notes/Report: Test Performed by: [address] [address] Tire Wrapper: Skip Tate DO Vitamin B12 Lvl 793 180-914 pg/mL Vitamin B12 Interpretation: Normal Range: 180-914 pg/mL Indeterminate: 140-180 pg/mL Deficient: <140 pg/mL Echocardiogram Reviewed date:11/10/2024 02:32:45 PM Interpretation: Performing Lab: Notes/Report: Reason For Referral Reason EGD and colonoscopy and GI Diagnosis 1 Screening for colon cancer (Z12.11) Diagnosis 2 Gastro-esophageal re flux disease with esophagitis, without bleeding (K21.00) Referral Organization [facility] Referring Provider First Name Dr. Gloria Referring Provider Last Name Janiya Referring Provider Speciality Pediatrics Referred Provider Specialty Gastroentero logy General Notes RizzoConsuelo liebermangail 10/17 09:39:27 AM CDT >Smith or shayy or Thuan Hall Jessica 11/02/2024 03:43:58 PM CDT >Referral faxed to [facility] [phone] Referral Priority Routine Medications Medication SIG (Take, Route, Frequency, Duration) Notes Start Date End Date Status Atorvastatin Calcium 40 MG Tablet 1 tablet Orally Once a day; Duration: 90 days Active Atenolol 25 MG Tablet 1 tablet Orally twice a day; Duration: 90 days 04/22/2024 Active Isosorbide Dinitrate 30 MG Tablet 1 tablet Orally daily 04/22/2024 Active SUMAtriptan Succinate 50 MG Tablet Oral; Duration: 0 04/30/2021 Active Diclofenac Sodium ER 100 MG Tablet Extended Release 24 Hour TAKE 1 TABLET BY MOUTH EVERY DAY WITH A MEAL; Duration: 30 Active Methotrexate Sodium 2.5 MG Tablet 5 tablets Orally weekly 04/22/2024 Active Folic Acid oral; Duration: 0 *Pick strength-form from [employer] for eRX* 07/08/2023 Active Desvenlafaxine ER 50 MG Tablet Extended Release 24 Hour 1 tablet Orally Once a day; Duration: 30 days 04/22/2024 Active Famotidine 40 MG Tablet 1 Oral every day; Duration: 90 Not-Taking Desvenlafaxine Succinate ER 50 MG Tablet Extended Release 24 Hour 3 tablets Orally Once a day; Duration: 90 days Total dose daily dose of 150 mg/ day Active Vyvanse 70 MG Capsule 1 capsule in the morning oral Once a day; Duration: 30 days 01/02/2025 Active Immunizations Vaccine Route Administration Date Status Comme nts Zoster IM Intramuscular 12/17/2021 Administered ,[facility] : New immunization record ,immstatus : Complete Zoster IM Intramuscular 04/29/2022 Administered ,[facility] : New immunization record ,immstatus : Complete Tdap Unknown 02/02/2012 Administered Source VFC Code: : Tdap IM Intramuscular 05/12/2022 Administered ,[facility] : New immunization record ,immstatus : [...] Problem Status W/U Status Risk Notes Problem Mixed hyperlipidemia (589853481) Mixed hyperlipidemia (E78.2) Active confirmed Problem Heart murmur (finding) (55561423) Cardiac murmur, unspecified (R01.1) Active confirmed Problem Hypothyroidism (37377800) Hypothyroidism, unspecified (E03.9) Active confirmed Problem Vaccination given (811393452) Encounter for immunization (Z23) 023 Problem resolved confirmed Problem School admission medical examination (927266442) Encounter for examination for admission to educational [facility] (Z02.0) 017 Problem resolved confirmed Problem Dog bite (295182494) Bitten by dog, initial encounter (W54.0XXA) 023 Problem resolved confirmed Problem Laceration of right forearm (disorder) (96704847023808430) Laceration without foreign body of right forearm, initial encounter (S51.811A) 023 Problem resolved confirmed Problem Open bite of right upper arm, initial encounter (S41.151A) 023 Problem resolved confirmed Problem Proteinuria (05833421) Proteinuria, unspecified (R80.9) 016 Problem resolved confirmed Problem Elevated blood pressure reading without diagnosis of hypertension (951304974) Elevated blood-pressure reading, without diagnosis of hypertension (R03.0) 016 Problem resolved confirmed Problem Pain of knee region (finding) (4471495644) Pain in unspecified knee (M25.569) 016 Problem resolved confirmed Problem Pain of right knee region (finding) (183073164344227) Pain in right knee (M25.561) Problem resolved confirmed Problem Cholelithiasis without obstruction (75294447) Calculus of gallbladder without cholecystitis without obstruction (K80.20) Problem resolved confirmed Problem Disorder of soft tissue (37588522) Other specified soft tissue disorders (M79.89) Inactive confirmed Problem Enteroviral vesicular pharyngitis (853050902) Enteroviral vesicular pharyngitis (B08.5) Inactive confirmed Problem Gastroesophageal reflux disease with esophagitis (disorder) (944581944) Gastro-esophageal reflux disease with esophagitis, without bleeding (K21.00) Active confirmed Problem Family history of ischemic heart disease (249845593) Family history of ischemic heart disease and other diseases of the circulatory system (Z82.49) Active confirmed Problem Solitary pulmonary nodule (948569580) Solitary pulmonary nodule (R91.1) Active confirmed Problem 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 Problem Localized edema (1722482) Localized edema (R60.0) Active confirmed Problem Fatigue (71770877) Other fatigue (R53.83) Active confirmed Problem Dyspnea (108745805) Other forms of dyspnea (R06.09) Active confirmed Problem Menopause (919015252) Menopausal and female climacteric states (N95.1) Active confirmed Problem Pain in left foot (154944340121870) Pain in left foot (M79.672) Active confirmed Problem Pain in right foot (682594371524871) Pain in right foot (M79.671) Active confirmed Problem Rheumatoid arthritis (80634330) Rheumatoid arthritis with rheumatoid factor of multiple sites without organ or systems involvement (M05.79) Active confirmed Problem Disorder of skin AND/OR subcutaneous tissue (36084002) Disorder of the skin and subcutaneous tissue, unspecified (L98.9) Active confirmed Problem Rosacea (853134672) Rosacea, unspecified (L71.9) Active confirmed Problem Essential hypertension (72029409) Essential (primary) hypertension (I10) Active confirmed Problem Anxiety disorder (807187131) Other specified anxiety disorders (F41.8) Active confirmed Problem Pain of left knee joint (finding) (327379160657876) Pain in left knee (M25.562) Problem resolved confirmed Problem Migraine without aura, not refractory (disorder) (739069994) Migraine, unspecified, not intractable, without status migrainosus (G43.909) Active confirmed Problem Attention deficit hyperactivity disorder (613483956) Attention-deficit hyperactivity disorder, unspecified type (F90.9) Active confirmed Problem Jaw pain (072981345) Jaw pain (R68.84) Inactive confirmed Vital Signs Heart Rate 85 /min 10/26/2024 Temperature 97.0 degrees Fahrenheit 10/26/2024 Respiratory Rate 18 /min 04/22/2024 Blood pressure diastolic 78 mm Hg 10/26/2024 Oximetry 99 % 10/26/2024 Height-cm 167.64 cm 10/26/2024 Weight-kg 85.28 kg 10/26/2024 Height 66.00 in 10/26/2024 Blood pressure systolic 126 mm Hg 10/26/2024 Weight 188.0 lbs 10/26/2024 BMI 30.34 kg/m2 10/26/2024 Encounters Encounter Location Date Provider Diagnosis [address] [address] 04/22/2024 Dr. Faizan Denson Mixed hyperlipidemia E78.2 ; Essential (primary) hypertension I10 ; Rosacea, unspecified L71.9 ; Other fatigue R53.83 ; Screening for colon cancer Z12.11 and Other specified anxiety disorders F41.[address] [address] 10/26/2024 Dr. Faizan Denson Essential (primary) hypertension I10 ; Mixed hyperlipidemia E78.2 ; Other specified anxiety disorders F41.8 ; Postmenopausal Z78.0 ; Blood glucose elevated R73.9 ; Leg swelling M79.89 ; Screening for colon cancer Z12.11 and Gastro-esophageal reflux disease with esophagitis, without bleeding K21.[address] [address] 01/16/2024 Provider Migration [address] [address] 01/17/2024 Provider Migration [address] [address] 04/14/2024 Dr. Faizan Denson Essential (primary) hypertension I10 ; Rheumatoid arthritis with rheumatoid factor of multiple sites without organ or systems involvement M05.79 ; Mixed hyperlipidemia E78.2 ; Gastro-esophageal reflux disease with esophagitis, without bleeding K21.00 and Hypothyroidism, unspecified E03.[address] [address] 04/25/2024 Dr. Faizan Denson Hypothyroidism, unspecified E03.[address] [address] 06/13/2024 Dr. Faizan Denson [address] [address] 08/01/2024 Dr. Faizan Denson Attention-deficit hyperactivity disorder, unspecified type F90.9 and Mild depression F32.A [address] [address] 08/12/2024 Dr. Faizan Denson [address] [address] 08/23/2024 Dr. Faizan Denson Rheumatoid arthritis with rheumatoid factor of multiple sites without organ or systems involvement M05.[address] [address] 08/30/2024 Dr. Faizan Denson Attention-deficit hyperactivity disorder, unspecified type F90.[address] [address] 10/03/2024 Dr. Faizan Denson Attention-deficit hyperactivity disorder, unspecified type F90.9 ; Mixed hyperlipidemia E78.2 ; Essential (primary) hypertension I10 ; Menopausal and female climacteric states N95.1 ; Gastro-esophageal reflux disease with esophagitis, without bleeding K21.00 and Hypothyroidism, unspecified E03.[address] [address] 11/02/2024 Dr. Faizan Denson Attention-deficit hyperactivity disorder, unspecified type F90.[address] [address] 11/13/2024 Dr. Faizan Denson [address] [address] 11/19/2024 Dr. Faizan Denson [address] [address] 12/01/2024 Dr. Faizan Denson Attention-deficit hyperactivity disorder, unspecified type F90.[address] [address] 01/02/2025 Dr. Faizan Denson Attention-deficit hyperactivity disorder, unspecified type F90.9 Assessments Encounter Date Diagnosis (ICD Code) Assessment Notes Treatment Notes Treatment Clinical Notes Section Notes 04/14/2024 Essential (primary) hypertension (ICD-10 - I10) 04/22/2024 Mixed hyperlipidemia (ICD-10 - E78.2) The [...] carbohydrate breakfast and continue to exercise vigorously 04/22/2024 Essential (primary) hypertension (ICD-10 - I10) 04/25/2024 Hypothyroidism, unspecified (ICD-10 - E03.9) 08/01/2024 Attention-deficit hyperactivity disorder, unspecified type (ICD-10 - F90.9) 08/01/2024 Mild depression (ICD-10 - F32.A) 08/23/2024 Rheumatoid arthritis with rheumatoid factor of multiple sites without organ or systems involvement (ICD-10 - M05.79) 08/30/2024 Attention-deficit hyperactivity disorder, unspecified type (ICD-10 - F90.9) 10/03/2024 Attention-deficit hyperactivity disorder, unspecified type (ICD-10 - F90.9) 10/26/2024 Essential (primary) hypertension (ICD-10 - I10) 11/02/2024 Attention-deficit hyperactivity disorder, unspecified type (ICD-10 - F90.9) 12/01/2024 Attention-deficit hyperactivity disorder, unspecified type (ICD-10 - F90.9) 01/02/2025 Attention-deficit hyperactivity disorder, unspecified type (ICD-10 - F90.9) 10/03/2024 Mixed hyperlipidemia (ICD-10 - E78.2) 10/26/2024 Mixed hyperlipidemia (ICD-10 - E78.2) 04/22/2024 Rosacea, unspecified (ICD-10 - L71.9) 04/14/2024 Rheumatoid arthritis with rheumatoid factor of multiple sites without organ or systems involvement (ICD-10 - M05.79) 04/22/2024 Other fatigue (ICD-10 - R53.83) 10/03/2024 Essential (primary) hypertension (ICD-10 - I10) 10/26/2024 Other specified anxiety disorders (ICD-10 - F41.8) 04/14/2024 Mixed hyperlipidemia (ICD-10 - E78.2) 10/26/2024 Postmenopausal (ICD-10 - Z78.0) 10/03/2024 Menopausal and female climacteric states (ICD-10 - N95.1) 04/22/2024 Screening for colon cancer (ICD-10 - Z12.11) 04/14/2024 Gastro-esophageal reflux disease with esophagitis, without bleeding (ICD-10 - K21.00) 04/22/2024 Other specified anxiety disorders (ICD-10 - F41.8) 10/03/2024 Gastro-esophageal reflux disease with esophagitis, without bleeding (ICD-10 - K21.00) 10/26/2024 Blood glucose elevated (ICD-10 - R73.9) 10/26/2024 Leg swelling (ICD-10 - M79.89) 04/14/2024 [...] recommended at this time. Discussed trial of [id number]-[id number] holistic supplements for hot flashes. Advised weight-bearing [...] symptoms. No ongoing prescription heartburn medication as nilb-hxw-afyljkv use is sufficient. Referral to gastroenterology for [...] Treatment Pending Test Test Name Order Date Vitamin B12 04/14/2024 Magnesium, Serum 04/14/2024 TSH [...] 04/25 Next Appt Details Provider Name:Dr. Faizan lokchart, 04/25/2025 11:00:00 AM, [address] [place], [address], [phone] Insurance Providers Payer Name Payer Address Payer Phone Subscriber Number Group Number Insured Name Patient Relationship to Insured Coverage Start Date Coverage End Date [employer] [address] [place] [address] [id number] Stefani Huang Self - patient is the insured Medical (General) History Surgical History Surgery Date(Month/Year) hysterectomy ,notes : Vagina l Hysterectomy and bilateral salpingectomy 04/10/21 Heart Catheterization ,notes : Minor Luminal irregularities in all coronaries. 10/2021
--- OUTSIDE RECORDS SUMMARY | 2025-01-09 00:30 | XMS_ITS | Encounter Summary ---
Author Organization [facility] Address [facility] [place] [address] Care Team Providers Care Hand Meat Salter Name Role Phone Faizan Denson MD Primary Care Provider [phone] Encounter Details Date Type Department Care Team (Late st Contact Info) Description 02/01/2016 Abstract [facility] CONVERSION [address] [place] [address] , Generic Conversion, Social History Tobacco Use [...] Description 12/11/2025 11:30 AM CDT [facility] [id number] [place] [phone] Hank Robb MD [facility]. [address] [address] documented as of this encounter Visit Diagnoses Not on filedocumented in this encounter Care Teams Hand Meat Salter Relationship Specialty Start Date End Date Faizan Denson MD [address] [place] [address] PCP - General PEDIATRICS 10/25/21 documented as of this encounter
--- OUTSIDE RECORDS SUMMARY | 2025-01-09 00:30 | XMS_ITS | Clinical Summary ---
Author Organization [facility] Address [address] [place] [address] Care Team Providers Care Food Service Coordinator Name Role Phone Jeremiah Denson MD Primary Care Provider Source Comments [facility],non-owned Affiliates and Associated Physician Practices is amultiple site organization consisting of ambulatory clinics and hospital sitesin [place], [place], [place] and [place]. This disclosure is being madepursuant to the Care Everywhere program and may not contain all information available regarding this patient. 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 Gender Identity Not on file Sexual Orientation Not on file Plan of Treatment Health Maintenance Due Date Last Done Comments COLOGUARD (AGES 45-75) - COL ON CA SCREENING 1971 COLON MONITORING 1971 COLONOSCOPY - COLON CA SCREENING 1971 CT COLONOGRAPHY - COLON CA SCREENING 1971 Colorectal Cancer Screening 1971 FIT - COLON CA SCREENING 1971 FLEX SIG - COLON CA SCREENING 1971 LIPID TESTING 1971 MAMMOGRAM 1971 HIV SCREENING 05/26/1986 HEPATITIS C SCREENING 05/22/1989 DTAP/TDAP/TD VACCINES (1 - Tdap) 05/26/1990 HEPATITIS B VACCINE (1 of 3 - 19+ 3-dose series) 05/26/1990 PAP SMEAR 05/26/1992 Cervical Cancer Screening 05/26/2001 PAP with HPV 05/26/2001 PNEUMOCOCCAL VACCINE 50+ (1 of 1 - PCV) 05/26/2021 ZOSTER VACCINE (1 of 2) 05/26/2021 DEPRESSION SCREENING 02/17/2024 COVID-19 VACCINE (1 - 2024-2 6 season) 2024 INFLUENZA VACCINE (#1) 2024 11/12/2017 HIB VACCINE Aged Out No longer eligi ble based on patient's age to complete this topic HPV VACCINE Aged Out No longer eligi ble based on patient's age to complete this topic MENINGOCOCCAL (Group B) VACC INE SHARED DECISION-MAKING Aged Out No longer eligibl e based on patient's age to complete this topic MENINGOCOCCAL GROUPS A/C/Y/W VACCINE Aged Out No longer eligible b ased on patient's age to complete this topic Insurance [facility] Care Teams Food Service Coordinator Relationship Specialty Start Date End Date Jeremiah Denson MD [address] [place] [address] PCP - General 02/06/10
--- OUTSIDE RECORDS SUMMARY | 2025-01-09 00:31 | XMS_ITS | Encounter Summary ---
Author Organization [facility] Address [facility] [place] [address] Care Team Providers Care Roof Technician Name Role Phone Faizan Denson MD Primary Care Provider [phone] Encounter Details Date Type Department Care Team (Late st Contact Info) Description 10/29/[address] [facility] [employer] [facility] Feeder [address] [place] [address] William Kent MD,PHD Social History [...] CDT St marva Walls RN Active * Robson Suicide Severity Rating Scale (Screener/Recent Self-Report) Question Answer Date of Assessment Author Status 1. Wish to be (Past 1 Month) No 10/30/2021 8:33 AM CDT Karmen Walls RN A ctive 2. Non-Specific Active Suicidal Thoughts (Past 1 Month) No 10/30/2021 8:33 AM CDT Karmen Walls RN A ctive 6. Suicidal Behavior (Lifetime) No 10/30/2021 8:33 AM CDT Karmen Walls RN A ctive documented as of this encounter Plan of Treatment Upcoming Encounters Date Type Department Care Team (Late st Contact Info) Description 12/11/2025 11:30 AM CDT Office Visit [facility] [address] [place] [address] Hank Robb MD [facility]. [address] [address] documented as of this encounter Visit Diagnoses Not on filedocumented in this encounter Care Teams Roof Technician Relationship Specialty Start Date End Date Faizan Denson MD [address] [place] [address] PCP - General PEDIATRICS 10/25/21 documented as of this encounter
--- OUTSIDE RECORDS SUMMARY | 2025-01-09 00:31 | XMS_ITS | Encounter Summary ---
Author Organization [facility] Address [address] [place] [address] Care Team Providers Care Soft Metals Engraver Hand Name Role Phone Jeremiah Denson MD Primary Care Provider Encounter Details Date Type Department Care Team (Late st Contact Info) Description 01/05/2025 Results Follow-Up [facility] Breast Surgery Flakito Zelaya [address] [facility] [address] [place] [address] Shawnee Becerra, [facility] [address] [facility] [address] [place] [address] MRI BREAST SCREENING WWO CONTRAST BILATERAL Social History Tobacco Use Types Packs/Day Years [...] on file 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 Gender Identity Not on file Sexual Orientation Not on file Occupation Industry Job Start Date Job End Date Not on file Not on file Not on file Not on file Not on file Not on file Not on file Not on file documented as of this encounter Plan of Treatment Upcoming Encounters Date Type Department Care Team (Late st Contact Info) Description 06/22/2025 9:50 AM CDT Appointment [facility] [address] [place] [address] Shawnee Becerra, NANCY [address] [facility] [address] [place] [address] 06/22/2025 10:45 AM CDT Office Visit [facility] Breast Surgery Flakito Nathalie [address] [facility] [address] [place] [address] Shawnee Becerra, NANCY [address] [facility] [address] [place] [address] documented as of this encounter Visit Diagnoses Not on filedocumented in this encounter Care Teams Soft Metals Engraver Hand Relationship Specialty Start Date End Date Jeremiah Denson MD PCP - General Family Practice 01/14/16 documented as of this encounter
--- OUTSIDE RECORDS SUMMARY | 2025-01-09 00:31 | XMS_ITS | Clinical Summary ---
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 - 01/05/2025 11:59 PM [employer] 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 Hospital Encounter [facility] MRI [address] [place] [phone] Shawnee Becerra FNP Arrived Discharge Disposition: Home or Self Care 01/05/2025 Results Follow-Up [facility] Breast Surgery [address] [phone] Shawnee Becerra FNP MRI BREAST SCREENING WWO CONTRAST BILATERAL 01/03/2025 External Device Data STL ABSTRACTION Provider, Abstract 12/14/2024 External Device Data [facility] ABSTRACTION Provider, Abstract 12/14/2024 External Device Data [facility] ABSTRACTION Provider, Abstract 12/07/2024 External Device Data [facility] ABSTRACTION Provider, Abstract 11/01/2024 External Device Data [facility] ABSTRACTION Provider, Abstract from Last 3 Months Immunizations Immunization Administration Dates Next Due Influenza Seasonal Unspecified Formulation IM Family History Medical History Relation Name Comments Diabetes Father Heart Disease Father Cancer Maternal Grandfather Breast Cancer Maternal Grandmother Age at Dx unknown Breast Cancer Mother Radha Rivera Cancer Mother Radha Rivera Cancer Paternal Grandfather Breast Cancer Sister 1 [...] on file Legal Sex Female 5:42 AM [employer] 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 Gender Identity Not on file Sexual Orientation [...] 36.4 C (97.6 F) 01/29/2017 12:28 PM [employer] 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 Respiratory Rate - - Oxygen Saturation - - Inhaled Oxygen Concentration - - Weight 85.3 kg (188 lb) 06/09/2024 10:09 AM CDT Height 170.2 cm (5' 7) 06/09/2024 10:09 AM CDT Body Mass Index 29.44 06/09/2024 10:09 AM CDT Plan of Treatment Upcoming Encounters Date Type Department Care Team (Late st Contact Info) Description 06/22/2025 9:50 AM CDT Appointment [facility] [address] [place] [phone] Shawnee Becerra, NANCY [address] [place] [address] 06/22/2025 10:45 AM CDT Office Visit [facility] Breast Surgery [address] [place] [place] [address] Shawnee Becerra, NANCY [address] [place] [address] Health Maintenance Due Date Last Done [...] (#1) 2024 11/12/2017 BREAST CANCER SCREENING 06/09/2025 06/10/19 25, 06/09/2023, 06/05/2022, Additional history exists Procedures Procedure Name Priority Date/Time Associated Diagnosis Comments MRI BREAST SCREENING WWO CONTRAST BILATERAL Routine 01/05/2025 9:41 AM 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 At high risk for breast cancer MAMMO 3D MATTHEW SCREEN BILAT W OR WO CAD Routine 06/09/2024 9:37 AM CDT Fibrocystic breast disease (FCBD), unspecified laterality Family history of breast cancer in sister Fibroadenoma of breast, unspecified laterality At high risk for breast cancer Heterogeneously dense tissue of both breasts on mammography from Last 3 Months or Most Recently Relevant to Health Maintenance Results * MRI BREAST SCREENING WWO CONTRAST BILATERAL (01/05/2025 9:41 AM [employer] 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) Anatomical Region Laterality Modality Breast Bilateral Magnetic Resonan ce 01/05/2025 9:42 AM [employer] 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 Impressions 01/05/2025 10:04 AM [employer] 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 IMPRESSION: No suspicious finding within either breast. RECOMMENDATION: Continued annual high risk screening breast MRI and annual screening mammography. BI-RADS Category 2: Benign findings DICTATION LOCATION: [address] 01/05/2025 10:04 AM [employer] 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 Exam: Bilateral breast MRI with and without intravenous contrast. CAD was utilized. 17 cc of MultiHance was utilized intravenously. Exam date: 01/05/2025. COMPARISON: 12/16/2023 and older. INDICATION: 54-year-old female presents for high risk breast screening. Family history of breast cancer in patient's mother and sister. No current breast complaint. FINDINGS: There is moderate background parenchymal breast enhancement. Right breast: The right axillary lymph nodes are morphologically normal. No suspicious right breast mass. Redemonstration of the superior central right breast cyst. There is no suspicious enhancement within the right breast above the parenchymal background enhancement. Right nipple retraction is redemonstrated, unchanged since 2017. Left breast: The left axillary lymph nodes are morphologically normal. There is no suspicious enhancement within the left breast above the parenchymal background enhancement. No suspicious mass. Signal void is noted within the upper inner left breast at the site of a tissue marker. Procedure Note Leslie Cancino MD - 01/05/2025 Exam: Bilateral breast MRI with and without intravenous contrast. CAD was utilized. 17 cc of MultiHance was utilized intravenously. Exam date: 01/05/2025. COMPARISON: 12/16/2023 and older. INDICATION: 54-year-old female presents for high risk breast screening. Family history of breast cancer in patient's mother and sister. No current breast complaint. FINDINGS: There is moderate background parenchymal breast enhancement. Right breast: The right axillary lymph nodes are morphologically normal. No suspicious right breast mass. Redemonstration of the superior central right breast cyst. There is no suspicious enhancement within the right breast above the parenchymal background enhancement. Right nipple retraction is redemonstrated, unchanged since 2017. Left breast: The left axillary lymph nodes are morphologically normal. There is no suspicious enhancement within the left breast above the parenchymal background enhancement. No suspicious mass. Signal void is noted within the upper inner left breast at the site of a tissue marker. IMPRESSION: No suspicious finding within either breast. RECOMMENDATION: Continued annual high risk screening breast MRI and annual screening mammography. BI-RADS Category 2: Benign findings DICTATION LOCATION: Location 3 - [facility] us [facility] Becerra [employer] MACHINE MR ORDERABLES Final Res ult * MAMMO 3D MATTHEW SCREEN BILAT W OR WO CAD (06/09/2024 9:37 AM CDT) Anatomical Region Laterality Modality Breast Bilateral Mammography 06/09/2024 9:3 7 AM CDT Impressions 06/09/2024 10:53 AM CDT IMPRESSION: No suspicious findings to suggest malignancy in either breast. Annual mammography is recommended. OVERALL FINAL ASSESSMENT: BI-RADS CATEGORY 1 - Negative DICTATION LOCATION: [facility] [place] Narrative 06/09/2024 10:53 AM CDT BILATERAL SCREENING DIGITAL [...] Most Recently Relevant to Health Maintenance Insurance [employer] Care Teams Radiology Manager Relationship Specialty Start Date End Date Jeremiah Denson MD PCP - General Family Practice 01/14/16
[2025-01-09 09:16] VITALS: BP 132/99; PULSE 91; RESP 20; TEMP 36.3; O2SAT 98; BMI 30.1
[2025-01-09] MEDS: LACTATED RINGERS 1,000 ML 150 ML IV CONT (09:27)
--- NOTE | 2025-01-09 09:29 | WPDANESEPPF ---
Anes - Initial Pre Proc Eval Procedure: Operation Date: 01/09/25 10:30 Proposed Procedures p EGD & Screening Colonoscopy - Erich Gaines MD Date/Time: 01/09/25 09:29 Surgeon: Erich Gaines MD Pre Op Diagnosis: screening,GERD Patient Data Age: 54 Gender: F Height: 1.68 m Weight: 84.7 kg Last Vital Signs Temp 97.4 F L 01/09/25 09:16 Pulse 91 01/09/25 09:16 Resp 20 01/09/25 09:16 BP 132/99 H 01/09/25 09:16 Pulse Ox 98 01/09/25 09:16 O2 Del Method Room Air 01/09/25 09:16 Allergies Allergy/AdvReac Type Severity Reaction Status Date / Time No Known Allergies Allergy Verified 01/09/25 09:15 Home Medications ?Medication ?Instructions ?Recorded ?Confirmed ?Type atenolol 25 mg tablet 25 mg PO DAILY 10/25/19 01/09/25 History desvenlafaxine 100 mg 100 mg PO DAILY 10/25/19 01/09/25 History tablet,extended release 24 hr lisdexamfetamine 70 mg capsule 70 mg PO DAILY 10/25/19 01/09/25 History (Vyvanse) diclofenac sodium 100 mg 100 mg PO DAILY 04/03/21 01/09/25 History tablet,extended release 24 hr aspirin 81 mg tablet,delayed 81 mg PO DAILY 12/27/24 01/09/25 History release (Adult Aspirin Regimen) atorvastatin 40 mg tablet 40 mg PO DAILY 12/27/24 01/09/25 History folic acid 1 mg tablet 1 mg PO WEEKLY 12/27/24 01/09/25 History methotrexate sodium 2.5 mg tablet 2.5 mg PO WEEKLY 12/27/24 01/09/25 History Patient hx anesthesia problems: none Family hx anesthesia problems: none Results Review: All pre-operative results and documents have been reviewed as part of the pre-operative evaluation. [facility] Past Medical History Medical History Fibroid uterus ADHD Depression Migraine Surgical History Surgical History History of endometrial ablation History of tubal ligation History of cholecystectomy 06/2018 Family History Family History Father Diabetes mellitus Hypertension, Onset Age: 62 Family history of cardiovascular disease Cerebrovascular accident, Onset Age: 62 Acute myocardial infarction, Onset Age: 62 Sibling Diabetes mellitus Hypertension Patient's brother is in good health Family history of cardiovascular disease Family history of malignant neoplasm of breast in first degree relative Patient's sister is in good health Mother Family history of rheumatoid arthritis Family history of malignant neoplasm of breast in first degree relative Social History Social History Smoking status: Never smoker Alcohol intake: never Drinks per week: 3 Alcohol use details: sometimes Substance use: never Substance use type: does not use Living arrangements: with family Spiritual care concerns: No Anes - Eval Final PreProcedure Day of Procedure 01/09/25 09:29 Patient weight: obese Lungs: normal air movement Airway: Mallampati scale class II Neurological: alert and oriented Last oral intake: >/= 8 hours ASA classification: II Emergent: no Anesthetic plan: proceed Anesthesia type and monitoring: general GIVS and standard monitoring Results Review: All pre-operative results and documents have been reviewed as part of the pre-operative evaluation. HTN, hyperlipidemia, hx of ECHO w 2025 w nml LVEF. Pt can walk short distances, no cp, occ dyspnea. Informed Consent: The patient's anesthetic plan and its attendant risks and benefits were discussed with the patient/family/POA. Questions were solicited and answers provided to the satisfaction of the patient/family/POA.
[2025-01-09] MEDS: ONDANSETRON INJ 4 MG/2 ML VIAL IV PUSH (09:46)
[2025-01-09] MEDS: FAMOTIDINE 20 MG/2 ML VIAL IV PUSH (09:46)
--- NOTE | 2025-01-09 10:03 | PM.HPGS ---
History of Present Illness History of Present Illness Consent: Risks, benefits, and alternatives have been discussed and questions answered. Patient agrees to proceed with procedure. 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 Review of Systems Review of Systems: All systems reviewed & are unremarkable except as noted in HPI and below PMFSH Past Medical History Medical History (Updated 01/09/25 @ 10:05 by Erich Gaines MD) Colon cancer screening Non-cardiac chest pain Fibroid uterus ADHD Depression Migraine Surgical History Surgical History History of endometrial ablation History of tubal ligation History of cholecystectomy 06/2018 Family History Family History Father Diabetes mellitus Hypertension, Onset Age: 62 Family history of cardiovascular disease Cerebrovascular accident, Onset Age: 62 Acute myocardial infarction, Onset Age: 62 Sibling Diabetes mellitus Hypertension Patient's brother is in good health Family history of cardiovascular disease Family history of malignant neoplasm of breast in first degree relative Patient's sister is in good health Mother Family history of rheumatoid arthritis Family history of malignant neoplasm of breast in first degree relative Social History Social History Smoking status: Never smoker Alcohol intake: never Drinks per week: 3 Alcohol use details: sometimes Substance use: never Substance use type: does not use Living arrangements: with family Spiritual care concerns: No Meds Home Medications and Allergies Home Medications ?Medication ?Instructions ?Recorded ?Confirmed ?Type atenolol 25 mg tablet 25 mg PO DAILY 10/25/19 01/09/25 History desvenlafaxine 100 mg 100 mg PO DAILY 10/25/19 01/09/25 History tablet,extended release 24 hr lisdexamfetamine 70 mg capsule 70 mg PO DAILY 10/25/19 01/09/25 History (Vyvanse) diclofenac sodium 100 mg 100 mg PO DAILY 04/03/21 01/09/25 History tablet,extended release 24 hr aspirin 81 mg tablet,delayed 81 mg PO DAILY 12/27/24 01/09/25 History release (Adult Aspirin Regimen) atorvastatin 40 mg tablet 40 mg PO DAILY 12/27/24 01/09/25 History folic acid 1 mg tablet 1 mg PO WEEKLY 12/27/24 01/09/25 History methotrexate sodium 2.5 mg tablet 2.5 mg PO WEEKLY 12/27/24 01/09/25 History Allergies Allergy/AdvReac Type Severity Reaction Status Date / Time No Known Allergies Allergy Verified 01/09/25 09:15 Vital Signs Vital Signs - 24 hr 01/09/25 09:16 Temperature 97.4 F L Pulse Rate 91 Respiratory Rate 20 Blood Pressure 132/99 H Pulse Oximetry 98 Oxygen Delivery Room Air Exam Const: General: comfortable and no acute distress HENMT: Face/Nose/Sinus: Normal nares present Eyes: General: appearance normal, both eyes and all related structures Resp: Auscultation: clear to auscultation bilaterally Cardio: Rate: regular rate Rhythm: regular rhythm GI: Inspection: non-distended GI Palp: Yes Soft to palpation Skin: General skin exam: normal color Extrem: General: normal to inspection Psych: Mental Status: mental status grossly normal Assessment and Plan Assessment and plan (1) Non-cardiac chest pain: Code(s): R07.89 - Other chest pain Status: Acute Assessment and Plan: egd (2) Colon cancer screening: Code(s): Z12.11 - Encounter for screening for malignant neoplasm of colon Status: Acute Assessment and Plan: colonoscopy
--- NOTE | 2025-01-09 10:14 | SUR.OPER ---
EGD ended 1011 colonoscopy started 1016
--- NOTE | 2025-01-09 10:19 | S_PTH ---
PATIENT: Stefani Huang LOC: [facility]io#:[id number] AGE/SX: 54/F ROOM: RE01/09/[address]: Erich Gaines MD : 1970 BED: DIS: 01/09/2025 SPEC #: [id number] RECD: 01/09/25 11:32 STATUS: LADI REMelissa #: [id number] DORIS: 01/09/25 10:[address]: Erich Gaines DEPT: [facility] Surgical RECD BY: Lara Hanson ENTERED: 01/09/25 11:33 SP TYPE: Surgical OTHR DR: Faizan Denson MD Tissues: A - Esophageal Biopsy B - Gastric Biopsy Procedures: Pas with Diastase Immunoperoxidase Hematoxylin and Eosin Stain Gross and Microscopic Level 4
[2025-01-09 10:27] VITALS: BP 95/51; PULSE 56; RESP 13; O2SAT 97
[2025-01-09 10:37] VITALS: BP 99/55; PULSE 66; RESP 16; O2SAT 98
[2025-01-09 10:47] VITALS: BP 101/61; PULSE 64; RESP 17; O2SAT 100
== END 2025-01-09 10:56 | disposition home or self-care (01) ==
PROVIDERS: PCP Pediatrics; Visit Provider Internal Medicine Gastroenterology
PROC: 0DJ08ZZ Inspection of Upper Intestinal Tract, Via Natural or Artificial Opening Endoscopic (ICD-10-PCS; CPT 45378; principal; 2025-01-09 10:30)
DX: Z12.11 Encounter for screening for malignant neoplasm of colon (principal); K64.8 Other hemorrhoids; K21.00 Gastro-esophageal reflux disease with esophagitis, without bleeding; K22.10 Ulcer of esophagus without bleeding; K44.9 Diaphragmatic hernia without obstruction or gangrene; I10 Essential (primary) hypertension; E78.5 Hyperlipidemia, unspecified; F90.9 Attention-deficit hyperactivity disorder, unspecified type; F32.A Depression, unspecified; E66.9 Obesity, unspecified; Z68.30 Body mass index [BMI] 30.0-30.9, adult; Z79.82 Long term (current) use of aspirin; Z90.49 Acquired absence of other specified parts of digestive tract; Z98.51 Tubal ligation status; Z98.891 History of uterine scar from previous surgery; Z80.3 Family history of malignant neoplasm of breast; Z82.49 Family history of ischemic heart disease and other diseases of the circulatory system
CPT/HCPCS: 43239; 45378; 88305; 88313; 88342; J2405; J2704; J7120